=== PATIENT | male | born 1945 | race Caucasian/White ===

== ENCOUNTER 2019-03-24 07:02 | Inpatient (IN) ==
[2019-03-24] MEDS ORDERED: ASPIRIN PO ONE (07:15)
[2019-03-24] MEDS ORDERED: DUONEB (A & A) INH ONE (07:30)
[2019-03-24] MEDS ORDERED: SOLU-MEDROL IV ONE (07:30)
[2019-03-24 07:31] LABS: BASO# 0.03 X1000 (0.0-0.2); BASO% 0.2 % (0.0-0.8); EOS# 0.22 X1000 (0.0-0.7); EOS% 1.6 % (0.0-10.0); HEMOGLOBIN 14.9 g/dL (14.0-18.0); IMM GRAN# 0.03 X1000 (0.0-0.04); IMM GRAN% 0.2 % (0.0-0.5); LYMPH# 0.64 X1000 (1.2-3.4); LYMPH% 4.6 % (20.5-51.1); MCH 28.7 PG (27-31); MCHC 33.1 g/dL (33-37); MCV 86.7 FL (81-99); MONO# 0.75 X1000 (0.11-0.59); MONO% 5.4 % (1.7-9.3); MPV 9.4 FL (7.4-10.4); PLT 352 X1000 (130-400); RBC 5.19 XMIL (4.7-6.1); RDW 13.7 % (11.5-14.5); WBC 13.97 X1000 (4.8-10.8)
--- NOTE | 2019-03-24 07:36 | PROVIDER DOCUMENTATION ---
HPI-Chest Pain - General Chief Complaint: Chest Pain Stated Complaint: right chest pain Time Seen by Provider: 03/24/19 07:21 Source: patient Allergies/Adverse Reactions: Patient Allergies Allergy/AdvReac Type Severity Reaction Status Date / Time Sulfa (Sulfonamide AdvReac Unknown Verified 07/02/18 08:48 Antibiotics) Home Medications: Home Medication List Medication Instructions Recorded Confirmed Last Taken Type Celecoxib [Celebrex] 200 mg PO QPM 10/04/14 03/24/19 03/23/19 History Omeprazole 40 mg PO QAM 10/04/14 03/24/19 03/23/19 History SIMVAstatin [Zocor] 40 mg PO QHS 10/04/14 03/24/19 03/23/19 History Alprazolam [Xanax] 0.5 mg PO BID 03/24/19 03/24/19 03/23/19 History Escitalopram Oxalate [Lexapro] 10 mg PO DAILY 03/24/19 03/24/19 03/24/19 History - History of Present Illness-CP Location: reports: other (right chest) Quality of Pain: reports: sharp Severity in ED: mild (chest pain has resolved, but now with mild, crampy back pain) Onset/Duration: abrupt (at 5:00am awoke him from sleep) Timing: gone now Context/Activities at Onset: reports: sleep Modifying Factors: improves with: nothing Associated Symptoms: reports: shortness of breath (patient reports several weeks of cough and decreased ability to take a deep breath) Aspirin Treatment Today: 325 mg x 1 (at home) Prior Chest Pain/Cardiac Workup: reports: no prior chest pain, other (no recent cardiac work up) Similar Symptoms Previously?: No Recently Seen Here or By Another Healthcare Provider: No Review of Systems - Adult - REVIEW OF SYSTEMS - ADULT Constitutional: reports: no symptoms reported Eyes: reports: no symptoms reported Ears, Nose, Mouth & Throat: reports: no symptoms reported Cardiovascular: reports: see HPI Past History - Adult - PAST MEDICAL HISTORY-ADULT Review of Records: reports: Old Records Reviewed Cardiovascular: reports: HTN, hyperlipidemia Gastrointestinal: reports: GERD Psychiatric: reports: anxiety - PRIOR SURGERIES/PROCEDURES Surgical/Procedure History: reports: none - IMMUNIZATION STATUS Childhood Immunizations: See Nurse Assessment Flu Vaccine: See Nurse Assessment Physical Exam-General - PHYSICAL EXAM-ADULT Initial Vital Signs Reviewed: Yes - CONSTITUTIONAL General Appearance: appears well, mild distress - EYES Eyes: PERRL/EOMI, pink conjunctivae - HEAD, EARS, NOSE, MOUTH & THROAT HENMT: normocephalic/atraumatic, moist mucous membranes, normal ENT inspection - NECK Neck: non-tender, full range of motion, supple - RESPIRATORY Respiratory: chest non-tender, lungs clear, no accessory muscle use, respiratory distress (mild), decreased breath sounds - CARDIOVASCULAR Cardiovascular: normal peripheral pulses, regular rate, rhythm, no edema - GASTROINTESTINAL (ABDOMEN) Abdominal Exam: non tender, soft, no organomegaly - MUSCULOSKELETAL Back Exam: normal inspection, no CVA tenderness Extremity: normal range of motion, non-tender, no pedal edema - SKIN Integumentary: normal color, normal turgor, warm/dry - NEUROLOGIC 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 as 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, grossly normal, no motor/sensory deficits - PSYCHIATRIC Psych/Mental Status: normal mood/affect, normal thought content, normal thought process, oriented x 3 - HEART Score HEART Score: History: Slightly Suspicious HEART Score: ECG: Non-Specific Repolarization Disturbance/LBBB/PM HEART Score: Age: > or = 65 Years HEART Score: Risk Factors for Atherosclerotic Disease: 1 or 2 Risk Factors HEART Score: Troponin: < or = Normal Limit Total HEART Score:: 4 Progress - PLAN OF CARE/RESULTS Progress/Plan/Lab Results: Laboratory Results - last 24 hr 03/24/19 03/24/19 03/24/19 07:20 07:20 07:20 WBC 13.97 H RBC 5.19 Hgb 14.9 Hct 45.0 MCV 86.7 MCH 28.7 MCHC 33.1 RDW Std Deviation 13.7 Plt Count 352 MPV 9.4 Immature Gran % (Auto) 0.2 Neut % (Auto) 88.0 H Lymph % (Auto) 4.6 L Hill % (Auto) 5.4 Eos % (Auto) 1.6 Baso % (Auto) 0.2 Immature Gran # (Auto) 0.03 Neut # (Auto) 12.30 H Lymph # (Auto) 0.64 L Hill # (Auto) 0.75 H Eos # (Auto) 0.22 Baso # (Auto) 0.03 PT INR PTT (Actin FS) D-Dimer, Quantitative Sodium 139 Potassium 4.0 Chloride 102 Carbon Dioxide 26 Anion Gap 11 BUN 13 Creatinine 0.7 Estimated GFR/1.73 m2 > 60 BUN/Creatinine Ratio 19 Glucose 118 H Calculated Osmolality 279 Calcium 8.8 Total Bilirubin 0.71 AST 12 ALT 14 Alkaline Phosphatase 77 Creatine Kinase 30 Troponin T Cbs-E-Dzggxgugxjd Pept 33 Total Protein 7.8 Albumin 3.5 Globulin 4.3 Albumin/Globulin Ratio 0.8 Plasma Lactate 03/24/19 03/24/19 03/24/19 07:20 07:20 07:20 WBC RBC Hgb Hct MCV MCH MCHC RDW Std Deviation Plt Count MPV Immature Gran % (Auto) Neut % (Auto) Lymph % (Auto) Hill % (Auto) Eos % (Auto) Baso % (Auto) Immature Gran # (Auto) Neut # (Auto) Lymph # (Auto) Hill # (Auto) Eos # (Auto) Baso # (Auto) PT 13.9 INR 0.99 PTT (Actin FS) 36.5 D-Dimer, Quantitative 0.87 H Sodium Potassium Chloride Carbon Dioxide Anion Gap BUN Creatinine Estimated GFR/1.73 m2 BUN/Creatinine Ratio Glucose Calculated Osmolality Calcium Total Bilirubin AST ALT Alkaline Phosphatase Creatine Kinase Troponin T < 0.010 Zaf-W-Dmnwmpwktir Pept Total Protein Albumin Globulin Albumin/Globulin Ratio Plasma Lactate 03/24/19 10:10 WBC RBC Hgb Hct MCV MCH MCHC RDW Std Deviation Plt Count MPV Immature Gran % (Auto) Neut % (Auto) Lymph % (Auto) Hill % (Auto) Eos % (Auto) Baso % (Auto) Immature Gran # (Auto) Neut # (Auto) Lymph # (Auto) Hill # (Auto) Eos # (Auto) Baso # (Auto) PT INR PTT (Actin FS) D-Dimer, Quantitative Sodium Potassium Chloride Carbon Dioxide Anion Gap BUN Creatinine Estimated GFR/1.73 m2 BUN/Creatinine Ratio Glucose Calculated Osmolality Calcium Total Bilirubin AST ALT Alkaline Phosphatase Creatine Kinase Troponin T Cce-A-Vmnayjkuhpk Pept Total Protein Albumin Globulin Albumin/Globulin Ratio Plasma Lactate 1.2 Orders Category Date Time Status Admit [facility] Routine AdmDCTranf 03/24/19 10:[address] [facility] Routine AdmDCTranf 03/24/19 12:58 Active Activity - Up with Assistance ORDERED Care 03/24/19 12:58 Active Cardiac Monitoring DIRECTED Care 03/24/19 07:15 Completed Elevate Head of Bed DIRECTED Care 03/24/19 12:58 Active Encourage Fluids DIRECTED Care 03/24/19 12:58 Active Intake and Output-Strict Q 8-HR ASSESS Care 03/24/19 12:58 Active Nursing- Assist w/ IS as order ORDERED Care 03/24/19 12:58 Active Oxygen Therapy- ED Nursing DIRECTED Care 03/24/19 07:15 Active Saline Loc NOW Care 03/24/19 07:15 Completed Turn, Cough and Deep Breathe Q2HR Care 03/24/19 12:58 Active Vital Signs Order Q 8-HR ASSESS Care 03/24/19 12:58 Active Regular Diet Diet 03/24/19 12:59 Active CHEST-2 VIEWS [RAD] Stat Exams 03/24/19 07:15 Completed BLOOD CULTURE [BLDCUL] Stat Lab 03/24/19 07:30 Results CBC WITH ELECTRONIC DIFF [HEME] Stat Lab 03/24/19 07:20 Completed CK PROFILE [SP CHEM] Stat Lab 03/24/19 07:20 Completed COMPREHENSIVE METABOLIC PANEL [CHEM] Stat Lab 03/24/19 07:20 Completed D-DIMER [COAG] Stat Lab 03/24/19 07:20 Completed LACTATE, PLASMA [CHEM] Stat Lab 03/24/19 10:10 Completed PRO B-NATRIURETIC PEPTIDE Stat Lab 03/24/19 07:20 Completed PROTIME WITH INR [COAG] Stat Lab 03/24/19 07:20 Completed PTT [COAG] Stat Lab 03/24/19 07:20 Completed TROPONIN T Stat Lab 03/24/19 07:20 Completed Albuterol 2.5MG/Ipratrop 0.5MG [Duoneb (A & A)] Med 03/24/19 07:30 Discontinued 3 ml INH NOW ONE Aspirin Med 03/24/19 07:15 Discontinued 325 mg PO NOW ONE Azithromycin 500 mg/Ns [Zithromax 500 mg/Ns] Med 03/24/19 10:01 Discontinued 500 mg in 250 ml IV NOW CefTRIAXONE [Rocephin] 2 gm Med 03/24/19 10:01 Discontinued 0.9% Sodium Chloride Inj [Ns] 50 ml IV NOW Methylprednisolone Sod Succ [Solu-Medrol] Med 03/24/19 07:30 Discontinued 125 mg IV NOW ONE Aerosol Treatments Routine Oth 03/24/19 07:30 Completed Aerosol Treatments Stat Oth 03/24/19 07:30 Completed Incentive Spirometer Routine Oth 03/24/19 12:58 Completed Oxygen Device Routine Oth 03/24/19 12:58 Completed Pulse Oximetry Routine Oth 03/24/19 12:58 Completed EKG [EKG] Stat Ther 03/24/19 07:15 Draft Transfer/Admit Order [TRANSFER] Routine Transfer 03/24/19 10:16 Completed Result Diagrams: 03/24/19 07:20 03/24/19 07:20 - EKG 1 Time of EKG reading by physician:: 07:25 EKG Read and Signed by:: Adis Velasquez Rate: 83 Rhythm: SR [place]: left Departure - Departure Date of Disposition Decision: 03/24/19 Time of Disposition Decision: 10:14 DIAGNOSIS: Pneumonia Qualifiers: Pneumonia type: due to unspecified organism Laterality: right Lung location: unspecified part of lung Qualified Code(s): J18.9 - Pneumonia, unspecified organism Disposition: ADMITTED INPATIENT 09 Certified Medical Emergency: Emergent Condition: Serious - Critical Care Note This patient required my direct & personal management of CC.: No Attestation - Physician/ DENICE Attestation Patient care was provided by Advanced Practice Provider:: No The physician spent face to face time with patient:: Yes Advanced Practice Provider documentation review:: Supervising physician onsite and consulted in the evaluation and care of this patient. The physician did have a face to face encounter with the patient.
[2019-03-24 07:38] LABS: INR 0.99; PROTIME 13.9 Seconds (11.0-16.0)
[2019-03-24 07:39] LABS: PTT 36.5 Seconds (22.3-41.8)
[2019-03-24 07:55] LABS: AGAP 11; ALB/GLOB RATIO 0.8; ALBUMIN 3.5 g/dL (3.5-5.0); ALKALINE PHOSPHATASE 77 U/L (32-122); BUN 13 mg/dL (8-22); CALCIUM 8.8 mg/dL (8.8-10.2); CHLORIDE 102 mmol/L (98-107); CK PROFILE 30 U/L (24-204); COSMO 279; CREATININE 0.7 mg/dL (0.7-1.2); ESTIMATED GFR > 60; GLUCOSE 118 mg/dL (70-104); GOT 12 U/L (10-34); GPT 14 U/L (10-44); SODIUM 139 mmol/L (136-145); TCO2 26 mmol/L (25-35); TOTAL BILIRUBIN 0.71 mg/dL (0.20-1.00); TOTAL PROTEIN 7.8 g/dL (6.3-8.3)
--- NOTE | 2019-03-24 08:13 | EKG Report ---
Test Performed on : 03/24/2019 07:15:31 AM Test Reason : CHEST PAIN Blood Pressure : / mmHG Vent. Rate : 083 BPM Atrial Rate : 083 BPM P-R Int : 178 ms QRS Dur : 108 ms QT Int : 368 ms P-R-T Axes : 005 -31 014 degrees QTc Int : 432 ms Normal sinus rhythm. Left axis deviation Abnormal ECG When compared with ECG of 02-JUL-2018 09:07, No significant change was found Unconfirmed Result
--- NOTE | 2019-03-24 09:41 | Diag Imaging Result Doc PS360 ---
CHEST-2 VIEWS - 03/24/2019 INDICATION: chest pain COMPARISON: 07/08/2018 FINDINGS: There is bilateral lower lobe airspace opacification consistent with a combination of atelectasis, infiltrate, or pleural effusion. This is slightly larger on the right side than the left. Heart size and pulmonary vascularity is grossly normal. IMPRESSION: Bilateral lower lobe airspace opacification, nonspecific. Electronically signed by Brandin Rowell 03/24/2019 9:39 AM
[2019-03-24] MEDS ORDERED: ROCEPHIN 2 GM in NS 50 ML IV ONE (10:01)
[2019-03-24] MEDS ORDERED: ZITHROMAX 500 MG/NS 500 MG/250 ML IVPB IV ONE (10:01)
[2019-03-24] MEDS ORDERED: ZOFRAN IV PRN (12:58)
[2019-03-24] MEDS: NS 1,000 ML IV PRN (15:25)
--- NOTE | 2019-03-24 15:46 | Diag Imaging Result Doc PS360 ---
EXAM: CT ABDOMEN/PELVIS W/WO ALESHAAS 03/24/2019 HISTORY: RUQ pain, fevers TECHNIQUE: This exam was performed using automated exposure control, adjustment of mA or kV according to patient size, and/or use of iterative reconstruction technique. COMMENT: There are no previous studies available for comparison. There is atelectasis versus pneumonia in both lower lobes particularly the right lower lobe. There is also a pleural effusion on the right. There is marked granulomata in the spleen. The spleen is enlarged measuring over 14.3 cm. The liver is unremarkable in appearance. The gallbladder is not distended and there are no apparent stones. There is a small hiatal hernia. The adrenal glands and pancreas are unremarkable. The aorta is not distended. There is calcification in the aorta and iliac arteries. The mesenteric and renal arteries appear to be patent. There are number of cysts in the right kidney. There are stones in the upper mid right collecting system. There is no evidence of bowel obstruction. There is some stool throughout colon. There is no evidence of appendicitis. Pelvis: There is diverticulosis in the sigmoid colon without evidence of diverticulitis. The urinary bladder is not distended. There is stool in the rectum. There has been posterior fusion at L5-S1. There is no evidence of acute bony abnormality. IMPRESSION: Bronchopneumonia with right pleural effusion. Electronically signed by Javed Baig 03/24/2019 3:43 PM
--- NOTE | 2019-03-24 16:15 | Diag Imaging Result Doc PS360 ---
EXAM: CT ANGIOGRAM PULMONARY ARTERIES 03/24/2019 HISTORY: chest pain TECHNIQUE: This exam was performed using automated exposure control, adjustment of mA or kV according to patient size, and/or use of iterative reconstruction technique. COMMENT: Contrast opacification of the pulmonary arteries is somewhat suboptimal but there are no definite filling defects. There is a large right pleural effusion. There is opacity in both lower lobes, and the inferior lingula particularly in the right lower lobe. There is also some apparent atelectasis in the right middle lobe. The spleen is enlarged measuring over 14.3 cm. There are spondylotic changes in the thoracic spine. IMPRESSION: Bronchopneumonia and large right pleural effusion. Splenomegaly. No evidence of pulmonary emboli. Electronically signed by Javed Baig 03/24/2019 4:13 PM
[2019-03-24] MEDS: CELEBREX PO SCH (21:00)
[2019-03-24] MEDS: ZOCOR PO SCH (21:00)
[2019-03-24] MEDS: LOVENOX SUBQ SCH (21:00)
[2019-03-24] MEDS: COLACE PO SCH (21:00)
[2019-03-24] MEDS: XANAX PO SCH (21:01)
--- NOTE | 2019-03-24 21:08 | HISTORY AND PHYSICAL ---
INDICATION FOR ADMISSION: Right-sided chest pain with fevers and chills and refractory cough. HISTORY OF PRESENT ILLNESS: Mr. Ying is a pleasant, 73-year-old gentleman with a past medical history consistent with B12 deficiency, osteoarthritis of the knee, personal history of colon polyps, history of insomnia, history of hematuria, reflux, elevated PSA. History of diverticular disease. History of generalized anxiety disorder, iron deficiency, impaired fasting glucose, dyslipidemia and spondylosis of the lumbosacral spine. He presents to the emergency room via ambulance after being awakened this morning at about 5:00 with what he describes as a cramp in the right side of his chest. He rates it a 9/10 as if a fist was grabbing him. He has no previous history of right-sided chest pain or spasm. He reports some nonspecific posterior right flank pain with radiation to the anterior lower chest margin, worsening cough with wheezing over the past several days. He has been seen over the past 6 to 8 weeks in the Internal Medicine Clinic for cough in the presence of normal chest x-rays. He had elevated white blood cell count, and elevated sedimentation rate with cyclical fevers, raising concern for B symptoms. A CT scan of the abdomen and pelvis and chest as well as Hematology/ Oncology consultation was forthcoming. On arrival to the emergency room, a x-ray is obtained demonstrating the presence of a consolidation in the right hemithorax secondarily complicated by pleural effusion. He is admitted to the internal medicine service for pneumonia complicated by a parapneumonic effusion. This certainly is the working diagnosis. I have cautioned the patient that there may be a more sinister cause of this abnormality and a pleural effusion. Time and further diagnostic workup and treatment will tell. MEDICATIONS ON ADMISSION: Including omeprazole 40 mg once daily. Iron supplement 325 mg b.i.d., vitamin C supplement to be taken with the iron as directed. Alprazolam 0.5 mg p.o. b.i.d., Lexapro 10 mg once daily. Celebrex 200 mg once daily, and simvastatin 40 mg once daily. ALLERGIES: To alcohol, Cymbalta, Celexa, Bactrim and sulfa based medications. PAST MEDICAL HISTORY: As per HPI. FAMILY HISTORY: Mother in 2017 following complications of a broken hip. The father at 67 secondary to congestive heart failure. Brother 70 years old with high blood pressure and cholesterol. Brother 68 with diabetes, sleep apnea and joint pain. SOCIAL HISTORY: Patient is with no children. Having been for 39 years. in 1979. He is retired from [employer] in 1998 after 25 years. 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 He has an 80 pack year history, quitting in 1983. He admits to a glass of red wine daily. He is well traveled. Has a limited history 1965 to 1967. PAST SURGICAL HISTORY: Back surgery in February 2018. Knee surgery in 2013 and in 2017. Vasectomy in 1982. Nephrolithiasis with a basket retrieval in 2003. TURP in 2008. Craniotomy at [facility] in 2014. Patient's last annual wellness visit 04/18/2018. 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 REVIEW OF SYSTEMS: Unremarkable except that noted within the HPI above, patient having recently been seen in the Internal Medicine Clinic as recently as March 09. He presented at that time a week after being treated for presumed insect bite, but he continued to have cyclical fevers in excess of 3 weeks with generalized fatigue. He reported headaches associated with the cyclical fevers and some worsening cough with shortness of breath and decreased appetite. At that time, a chest x-ray was obtained in the Internal Medicine clinic, failing to demonstrate any evidence of consolidation, mass or pneumonia. It was recommended that he try an inhaler and this was provided in the form of sample since his pulmonary exam was entirely normal. We agreed to interval follow up in 5 to 7 days. He presented back with no significant improvement, additional labs demonstrating the presence of elevated sedimentation rate between 100 and 125 and nonspecifically elevated white blood cell count without focal source of infection. At that point, it was felt that hematology/oncology evaluation would be indicated secondary to working diagnosis, suspect for lymphoma. A CT scan of the chest, abdomen and pelvis were ordered at that time. However, he was not able to make that appointment or those studies as he presented to the emergency room as per HPI above. He is seen in the emergency room and evaluated for admission. He is provided a single therapeutic injection of Rocephin and azithromycin and blood cultures are pending at the time of admission. PHYSICAL EXAMINATION: VITALS: At the time of rounding, blood pressure 114/74, respirations at 20, pulse at 91, temperature at 98.1. T-max at 100.1. Saturating 92% on room air. HEENT: Normocephalic, atraumatic. Pupils are equal and reactive to light and accommodation. NECK: Soft and supple without lymphadenopathy or bruits. CARDIOVASCULAR: Unremarkable. PULMONARY: Lungs are clear with decreased respiratory sounds in the right posterior middle and right lower lobes. ABDOMEN: Soft. Nontender. EXTREMITIES: Benign, without clubbing, cyanosis, or edema. NEUROLOGICAL: Cranial nerves 2-12 are grossly intact. Patient is alert oriented x3 without any cognitive deficiencies. LABORATORY: On admission, including a white blood cell count at 13.97. Hemoglobin and hematocrit of 14.9 and 45.0 with platelets at 352. He does have a left shift. PT/INR unremarkable. He does have an elevated D-dimer at 0.87, sodium 139, potassium 4.0, chloride 102, bicarb at 26, BUN and creatinine are unremarkable at 13 and 0.7. AST and ALT are normal. First set of cardiac enzymes are negative. Plasma lactate is negative at 1.2. Based on acute onset of left-sided pleuritic chest pain 9/10 unlike any prior, and shortness of breath with tachycardia and fever, initial chest x-ray in the ER is performed demonstrating presence of bilateral early infiltrates. A CT angiogram is performed demonstrating no evidence of pulmonary embolism. There is a large right-sided pleural effusion and apparent atelectasis in the right middle lobe. The spleen is noted to be mildly enlarged at 14.3 cm. IMPRESSION: A 73-year-old, with right-sided lower lobe pneumonia complicated by parapneumonic effusion. The patient is admitted for community-acquired pneumonia and provided initial dosing of the therapeutic antibiotic in the emergency room and will be continued on the same upon transfer to the floor. We did discuss non-infectious and more ominous causes of consolidation and pleural effusions. We will follow clinically for resolution of fever and general improvement in the appearance of the chest x-ray over the next 48 to 72 hours. No new and/or additional recommendations at this time. The patient understands the course of treatment and plan. cc: Emiliano Rachel DO
[2019-03-25] MEDS: NS 1,000 ML IV PRN (03:07)
--- NOTE | 2019-03-25 09:01 | Diag Imaging Result Doc PS360 ---
EXAM: CHEST-2 VIEWS HISTORY: RLL pneumonia with effusion TECHNIQUE: Chest two views COMPARISON: 03/24/2019 FINDINGS: There is a small to moderate-sized right pleural effusion. There is basilar atelectasis and underlying infiltrates. No pulmonary edema. Heart is borderline mildly prominent. Minimal atelectasis in the left base. IMPRESSION: Worsening right pleural effusion with basilar atelectasis and pneumonia. Electronically signed by Denis Lira 03/25/2019 8:59 AM
[2019-03-25] MEDS: ZITHROMAX PO SCH (09:56)
[2019-03-25] MEDS: PRILOSEC PO SCH (09:57)
[2019-03-25] MEDS: XANAX PO SCH ×2 (09:57→20:34)
[2019-03-25] MEDS: ROCEPHIN 1 GM in NS 50 ML IV SCH (09:57)
[2019-03-25] MEDS: COLACE PO SCH ×2 (09:57→20:34)
[2019-03-25] MEDS ORDERED: TYLENOL PR PRN (17:02)
[2019-03-25] MEDS ORDERED: TYLENOL PO ONE (17:02)
--- NOTE | 2019-03-25 19:58 | PROGRESS NOTE ---
DATE: 03/25/2019 SUBJECTIVE: Indication for prolonged hospitalization, ongoing medical management for presumed community-acquired pneumonia complicated by parapneumonic effusion. Today the chest x-ray would demonstrate interval worsening of the pleural effusion. The patient also continues to run low- grade fever despite antibiotic coverage. Blood cultures are negative to date. I think, based on the newness of the pleural effusion and worsening, that a therapeutic/diagnostic thoracentesis would be indicated. 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 We will be putting in an order for this to happen over the course of the next 12 to 24 hours. He reports that he is more short of wind and having more difficulty lying flat and on his right side. OBJECTIVE: Vital signs at the time of rounding: Blood pressure 140/68, pulse at 97, respiration rate at 20, temperature at 99.9 degrees. Intake and output: Cumulatively [id number] in and none recorded as out. He continues on daily ceftriaxone and daily azithromycin. Again, blood cultures are pending. On exam the patient is sitting up in bed with some mild respiratory difficulty. There is dullness to percussion about fdc up on the right posterior side and decreased/absent respiratory sounds in the posterior right lower hemithorax.Cardiovascular: Regular rate and rhythm without murmurs, gallops or rubs. Abdomen is soft. Extremities are benign, without clubbing, cyanosis or edema. Cranial nerves 2 through 12 are grossly intact. The patient is alert oriented x3 without any cognitive deficiencies. LABORATORY DATA: Laboratory is ordered for tomorrow morning including a CMP and a CBC for interval comparison and review. Again, blood cultures are still pending at the time of admission. DIAGNOSTIC DATA: Chest x-ray is noted to be interval worse with pleural effusion on the right. IMPRESSION AND PLAN: A 73-year-old gentleman with new-onset pleural effusion. This within the context of presumed community-acquired pneumonia. Based on new-onset pleural effusion and interval worsening over the past 12 to 24 hours, I do think that a therapeutic/diagnostic thoracentesis is indicated. I have consulted with Pulmonary Critical Care for assistance in this regard. I have also cautioned the patient that the fluid will be tested for other noninfectious causes such as malignancy. In the event that his fever was to spike overnight, we would end up broadening antibiotic coverage to include anaerobes as well as staphylococcus. He is complaining of cough. We will be providing him some narcotic-based antitussive agent. The patient and the understand the course of treatment and plan. No further issues at this time. Note is dictated on the evening of rounds. cc: Emiliano Rachel DO
[2019-03-25] MEDS: CELEBREX PO SCH (20:34)
[2019-03-25] MEDS: ZOCOR PO SCH (20:34)
[2019-03-25] MEDS: TUSSIONEX LIQUID PO SCH (20:34)
[2019-03-25] MEDS: DOXYCYCLINE PO SCH (22:15)
--- NOTE | 2019-03-26 01:20 | PULMONOLOGY CONSULTATION ---
DATE: 03/25/2019 HISTORY OF PRESENT ILLNESS: Mr. Ying is a 73-year-old white male with an 80 pack-year history for tobacco (patient unrelated to this practitioner). He reports he was in his usual state of health until the end of January. The patient had company visit his house and after they left, he developed a gastrointestinal illness associated with nausea, vomiting, and fevers. He recovered from this illness, but approximately 1 week later he developed a minor cough with subsequent onset of periodic fevers. He would take Tylenol and this would resolve. Sometime in February, he also noted a small tick on his inner thigh. This did not leave a lesion and did not appear to be imbedded. He did develop a target lesion on his right forearm, which he describes as the round [place] with a central clearing. He was evaluated by Dr. Rachel and received 10 days of doxycycline on 02/27/2019. He reports his fever resolved on the last day of antibiotics, but subsequently returned. He has also developed a progressive increasing cough, shortness of breath, and some right-sided pleuritic pain. He has had minimal sputum production. He has had no recent dental work. He denies a change in smell of his breath. He has had no recent travel. He has fairly severe gastroesophageal reflux and if he does not eat at the appropriate time he will have to get up out of bed. He frequently will eat supper around 5 p.m., but will eat sandwiches as late as 7 p.m. and go to bed at 10. He was admitted to the emergency room after presenting with mid chest pain and back pain which woke him from sleep. PAST MEDICAL HISTORY: 1. Obstructive sleep apnea, on CPAP. 2. Significant gastroesophageal reflux, as outlined above. 3. Dyslipidemia. 4. Hypertension. 5. History of history of nephrolithiasis. 6. BPH, status post TURP. 7. Osteoarthritis status post bilateral total knee arthroplasty. 8. Back surgery. 9. Craniotomy per Dr. Rachel's notes. 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 He drinks approximately 5 alcoholic beverages per week. He has an 80 pack-year history for tobacco. FAMILY HISTORY: Positive for coronary artery disease, hypertension, dyslipidemia, and diabetes mellitus. REVIEW OF SYSTEMS: Twelve system review of systems is negative except as outlined in the HPI. PHYSICAL EXAMINATION: General: Reveals a healthy-appearing white male, resting comfortably and in no distress. Vital signs: Maximum temperature during this hospitalization, 100.1 degrees. BP 140/68, heart rate 97, respiratory rate 20, oxygen saturation 97% on room air. HEENT: Pupils are equal and reactive. Oropharynx is clear. Neck: Supple. Chest: Reveals pleural rub at the right base with decreased breath sounds. Cardiac: S1, S2. Abdomen: Obese and soft. Extremities: Reveal trace edema. LABORATORIES: CT scan of the thorax reveals no evidence of pulmonary emboli. There is a moderate to large right-sided pleural effusion with consolidation in the right middle and right lower lobe. He has mild splenomegaly. White blood count 13.97, hemoglobin 14.9, platelet count 352,000. IMPRESSION: A 73-year-old with extensive tobacco history, who has had an ongoing infectious process for the last 6 weeks. The patient does report a tick bite with a target lesion, but this was midway in his febrile illness. The patient's initial complaint was nausea, vomiting, diarrhea, followed by a fever 1 week later. The unifying hypothesis would be a minor aspiration event which led to an indolent lung abscess, which has subsequently developed a parapneumonic effusion with possible empyema. RECOMMENDATIONS: 1. Continue broad-spectrum antibiotics. Consider adding anaerobic coverage. 2. Thoracentesis with appropriate studies outlined in the order section. 3. Perform Lyme titers, although this is felt to be unlikely. 4. Encourage reflux precautions at discharge. The patient should not eat for several hours before going to bed. 5. Additional recommendations pending hospital course. cc: MD Emiliano Muse,
[2019-03-26] MEDS: LOVENOX SUBQ SCH (01:59)
[2019-03-26 05:33] LABS: BASO# 0.02 X1000 (0.0-0.2); BASO% 0.2 % (0.0-0.8); EOS# 0.11 X1000 (0.0-0.7); EOS% 1.1 % (0.0-10.0); HEMATOCRIT 38.9 % (42.0-52.0); HEMOGLOBIN 12.9 g/dL (14.0-18.0); LYMPH# 0.54 X1000 (1.2-3.4); LYMPH% 5.2 % (20.5-51.1); MCH 28.7 PG (27-31); MCHC 33.2 g/dL (33-37); MCV 86.6 FL (81-99); MONO# 1.09 X1000 (0.11-0.59); MONO% 10.5 % (1.7-9.3); MPV 9.2 FL (7.4-10.4); NEUT# 8.62 X1000 (1.4-6.5); PLT 298 X1000 (130-400); RBC 4.49 XMIL (4.7-6.1); RDW 13.7 % (11.5-14.5); WBC 10.38 X1000 (4.8-10.8)
[2019-03-26 05:58] LABS: AGAP 9; ALB/GLOB RATIO 0.8; ALBUMIN 2.8 g/dL (3.5-5.0); ALKALINE PHOSPHATASE 84 U/L (32-122); BUN 16 mg/dL (8-22); CHLORIDE 102 mmol/L (98-107); COSMO 277; CREATININE 0.6 mg/dL (0.7-1.2); ESTIMATED GFR > 60; GLUCOSE 105 mg/dL (70-104); GOT 41 U/L (10-34); GPT 50 U/L (10-44); POTASSIUM 4.1 mmol/L (3.5-5.1); SODIUM 138 mmol/L (136-145); TCO2 27 mmol/L (25-35); TOTAL BILIRUBIN 0.65 mg/dL (0.20-1.00); TOTAL PROTEIN 6.5 g/dL (6.3-8.3)
[2019-03-26] MEDS: XANAX PO SCH ×3 (07:50→21:07)
[2019-03-26] MEDS: DOXYCYCLINE PO SCH ×3 (07:53→20:25)
[2019-03-26] MEDS: ZITHROMAX PO SCH ×2 (07:53→08:12)
[2019-03-26] MEDS: COLACE PO SCH ×3 (07:53→20:25)
[2019-03-26] MEDS: TUSSIONEX LIQUID PO SCH ×3 (07:54→20:26)
[2019-03-26] MEDS: PRILOSEC PO SCH ×2 (07:54→08:13)
--- NOTE | 2019-03-26 09:06 | Diag Imaging Result Doc PS360 ---
CHEST-2 VIEWS - 03/26/2019 INDICATION: RLL pneumonia with effusion COMPARISON: 03/25/2019 FINDINGS: There has been increase in size of the right basilar opacification which is now moderate to large. However at least some of this area is probably lung as the area did not appear as a uniform effusion on the ultrasound. The majority is probably pleural effusion. IMPRESSION: Increased size of the right basilar opacification consistent with pleural effusion and probably consolidated lung. Electronically signed by Brandin Rowell 03/26/2019 9:04 AM
--- NOTE | 2019-03-26 09:11 | Diag Imaging Result Doc PS360 ---
US THORACENTESIS W/IMAGE GUIDE - 03/26/2019 INDICATION: fever, Right sided pleural effusion TECHNIQUE: The risks and benefits of the procedure were discussed with the patient. All questions were answered. Written and verbal informed consent was obtained. Overlying skin was prepped and draped in sterile fashion. Anesthesia was achieved with injection of 6 cc of 1% lidocaine. COMPARISON: Previous chest x-ray FINDINGS: There were two pockets of effusion at the right midlung and lung base. The midlung pocket is actually the larger one measuring about 200 cc. At the right base this measured about 100 cc. Probably a lot of the opacification is consolidated lung. 60 cc was removed without difficulty using a fine needle. The fluid is clear yellow. The patient reported no symptoms from the procedure. IMPRESSION: Successful and uncomplicated ultrasound-guided thoracentesis of a small volume of the right pleural effusion. There is a small to moderate effusion and significant consolidated lung. Electronically signed by Brandin Rowell 03/26/2019 9:09 AM
[2019-03-26 09:52] LABS: AMYLASE BODY FLUID 33 U/L; GLUCOSE BODY FLUID 47 mg/dL; TOTAL PROT BODY FLUID 4.9 g/dL
[2019-03-26 09:59] LABS: LDH BODY FLUID 1213 U/L
[2019-03-26] MEDS: ROCEPHIN 1 GM in NS 50 ML IV SCH (10:03)
[2019-03-26 10:10] LABS: BODY FLUID SOURCE PLEURAL FLUID; SPECIMEN PLEURAL FLUID
[2019-03-26] MEDS: TYLENOL PO PRN (11:10)
[2019-03-26] MEDS: LEXAPRO PO SCH (12:34)
[2019-03-26] MEDS: NS 1,000 ML IV PRN (18:44)
[2019-03-26] MEDS: CELEBREX PO SCH (20:24)
--- NOTE | 2019-03-27 08:16 | PULMONOLOGY PROGRESS NOTE ---
DATE: 03/26/2019 SUBJECTIVE: The patient is awake, alert, and conversant. He has some cough which he reports is nonproductive. OBJECTIVE: Vital Signs: Maximum temperature in the last 24 hours is 99.9 degrees, blood pressure 128/64, heart rate 92, respiratory rate 18, oxygen saturation 97% on 2 L per nasal cannula. HEENT: Pupils are equal and reactive. Oropharynx appears clear. Neck: Supple. Chest: Reveals decreased breath sounds right base without definite E to A changes. Cardiac: S1, S2. Abdomen is soft. Extremities: Without edema. LABORATORY AND DIAGNOSTIC DATA: Thoracentesis was attempted by Radiology. Two pockets of fluid were identified and a small to moderate effusion was seen but significant amount was felt to be related to consolidated lung. 60 mL of clear yellow fluid was aspirated. Pleural fluid results: pH 8.0, white blood count 1.0, glucose 47, total protein 4.9, LDH 1213, amylase 33. Gram stain revealed 1+ white blood cells but no bacteria. Culture pending. White blood count now normal at 10.38, platelet count 298,000. Immunoglobulin levels are normal. IMPRESSION: A 73-year-old with: 1. Cyclic fevers. 2. Right lower lobe pneumonia. 3. Hypoxemic respiratory failure. 4. Parapneumonic effusion. 5. Leukocytosis with resolution on antibiotics. 6. Gastroesophageal reflux disease. RECOMMENDATIONS: 1. Continue broad-spectrum antibiotics. 2. Follow cultures from thoracentesis. 3. Continue bronchial hygiene. 4. Continue gastric acid suppression. 5. Would like to see radiographic improvement before discharge given the progression and severity of the right basilar consolidation. cc: MD Emiliano Muse DO
[2019-03-27] MEDS: TYLENOL PO PRN ×2 (08:43→19:26)
[2019-03-27] MEDS: TUSSIONEX LIQUID PO SCH ×2 (08:43→20:16)
[2019-03-27] MEDS: DOXYCYCLINE PO SCH (08:44)
[2019-03-27] MEDS: LEXAPRO PO SCH (08:44)
[2019-03-27] MEDS: COLACE PO SCH ×2 (08:44→20:16)
[2019-03-27] MEDS: PRILOSEC PO SCH (08:44)
[2019-03-27] MEDS: XANAX PO SCH ×2 (08:45→20:16)
--- NOTE | 2019-03-27 12:27 | Diag Imaging Result Doc PS360 ---
EXAM: CHEST-2 VIEWS 03/27/2019 HISTORY: demonstrate change/betterment in RLL TECHNIQUE: PA and lateral chest COMMENT: There is a large possibly loculated right pleural fluid collection. This has increased apparently in volume since 03/26/2019. The inspiration is actually better than on the previous study. There is apparent atelectasis in the left base. The heart size appears to be within normal limits. IMPRESSION: Worsening right pleural effusion. Electronically signed by Javed Baig 03/27/2019 12:24 PM
[2019-03-27 14:43] LABS: LYME DISEASE SCREEN SEE COMMENTS
[2019-03-27] MEDS: CULTURELLE PO SCH ×2 (15:55→20:17)
[2019-03-27] MEDS: LEVAQUIN PO SCH (16:23)
[2019-03-27] MEDS: CLEOCIN PO SCH ×3 (16:23→22:46)
[2019-03-27] MEDS: CELEBREX PO SCH (20:16)
[2019-03-28] MEDS: CLEOCIN PO SCH ×4 (02:47→20:02)
[2019-03-28] MEDS: TYLENOL PO PRN ×3 (02:47→18:26)
--- NOTE | 2019-03-28 07:03 | Diag Imaging Result Doc PS360 ---
EXAM: CHEST-1 VIEW HISTORY: SOB TECHNIQUE: Chest single view COMPARISON: 03/27/2019 FINDINGS: Likely loculated large right pleural effusion with atelectasis and infiltrates. This is similar to the prior exam. The left lung remains well expanded and clear. Mild pulmonary edema. IMPRESSION: Stable chest. Electronically signed by Denis Lira 03/28/2019 7:01 AM
[2019-03-28] MEDS ORDERED: ROBAXIN PO ONE ×2 (08:21→08:45)
[2019-03-28 09:35] LABS: BASO# 0.02 X1000 (0.0-0.2); BASO% 0.2 % (0.0-0.8); HEMOGLOBIN 13.2 g/dL (14.0-18.0); LYMPH% 4.9 % (20.5-51.1); MCH 28.4 PG (27-31); MONO# 0.83 X1000 (0.11-0.59); MONO% 8.1 % (1.7-9.3); MPV 8.9 FL (7.4-10.4); NEUT# 8.69 X1000 (1.4-6.5); NEUT% 84.8 % (42.2-75.2); PLT 304 X1000 (130-400); RBC 4.65 XMIL (4.7-6.1); RDW 13.6 % (11.5-14.5); WBC 10.24 X1000 (4.8-10.8)
[2019-03-28] MEDS: PRILOSEC PO SCH (09:55)
[2019-03-28] MEDS: CULTURELLE PO SCH ×2 (09:55→20:01)
[2019-03-28] MEDS: COLACE PO SCH ×2 (09:55→20:02)
[2019-03-28] MEDS: LEVAQUIN PO SCH (09:55)
[2019-03-28] MEDS: TUSSIONEX LIQUID PO SCH ×2 (09:55→20:02)
[2019-03-28] MEDS: LEXAPRO PO SCH (09:55)
[2019-03-28] MEDS: XANAX PO SCH ×2 (10:02→20:01)
[2019-03-28 10:04] LABS: AGAP 9; ALB/GLOB RATIO 0.8; ALBUMIN 2.9 g/dL (3.5-5.0); ALKALINE PHOSPHATASE 141 U/L (32-122); BUN 9 mg/dL (8-22); CALCIUM 8.9 mg/dL (8.8-10.2); CHLORIDE 101 mmol/L (98-107); COSMO 275; CREATININE 0.6 mg/dL (0.7-1.2); ESTIMATED GFR > 60; GLUCOSE 116 mg/dL (70-104); GOT 22 U/L (10-34); GPT 68 U/L (10-44); POTASSIUM 3.7 mmol/L (3.5-5.1); SODIUM 138 mmol/L (136-145); TCO2 28 mmol/L (25-35); TOTAL BILIRUBIN 1.04 mg/dL (0.20-1.00); TOTAL PROTEIN 6.4 g/dL (6.3-8.3)
--- NOTE | 2019-03-28 13:25 | Diag Imaging Result Doc PS360 ---
EXAM: CT THORAX W/WO CONTRAST HISTORY: hypoxia, fever, right posterior chets pain TECHNIQUE: Emergent CT chest with and without contrast COMPARISON: 03/24/2019 FINDINGS: Large loculated and multiseptated right pleural effusion. There is prominent atelectasis to the right middle and lower lobes. There may be underlying infiltrates as well. No cardiomegaly. No left pleural effusion. There calcified left hilar lymph nodes with scattered granuloma. IMPRESSION: Interval increase in the size of the loculated right pleural fluid collections since the prior CT. Similar appearance to the postthoracentesis chest films from 03/26/2019. This exam was performed using automated exposure control, adjustment of mA or kV according to patient size, and/or use of iterative reconstruction technique. Electronically signed by Denis Lira 03/28/2019 1:23 PM
--- NOTE | 2019-03-28 14:03 | PROGRESS NOTE ---
DATE: 03/28/2019 INDICATION FOR PROLONGED HOSPITALIZATION: Right-sided consolidation with pleural effusion, intervally worsening, and persistent fever. The patient was seen yesterday without documentation within the record. He was also seen by pulmonology note reviewed. Making recommendations for continuing antibiotic coverage. Performing a Lyme titer and preference to see radiographic improvement before discharge given the progression and severity of the right basilar consolidation. The presence of fever yesterday is somewhat unsettling. PHYSICAL EXAMINATION: Temperature this morning 98.8, pulse 77, respirations at 16, blood pressure at 104/66. This would be somewhat of a worrisome finding. This would be his lowest blood pressure to date. Pulse oximetry demonstrating interval worsening down into less than 95 making him hypoxic on room air. I's O's cumulative 7535 in and 1625 out for +5.9 L. Last laboratory is noted to be 03/26/2019. HEENT: Unremarkable. Cardiovascular: Regular rate and rhythm. Lungs: With decreased breath sounds on the right. Abdomen: Soft. Extremities: Benign. Neurological: Cranial nerves 2-12 are grossly intact. Patient is alert and oriented x3 without any cognitive deficiencies. Intentional tremor is noted on exam. IMPRESSION: 73-year-old, with large pleural effusion secondary to consolidation, currently on Levaquin and clindamycin in an effort to provide some coverage for anaerobes. No positive cultures or abnormal laboratory findings to date. IgG, IgM, and IgA are all noted to be unremarkable. Lyme screen is negative. Pleural fluid for AFB and fungal are noted to be negative. He does describe some right upper posterior shoulder pain today. It is difficult to determine whether this is related to musculoskeletal tension or related to a primary process contained within the right hemithorax. We will be obtaining some lab this morning, as well as providing him some muscle relaxants p.r.n. and repeating the CAT scan. The rationale for the CAT scan is hypotension, hypoxia, and persistent fever on antibiotics. No new and/or additional recommendations at this time. We will continue to follow clinically in this regard. The patient understands the course of treatment and plan. cc: Emiliano Rachel, DO [facility]
[2019-03-28] MEDS: CELEBREX PO SCH (20:01)
[2019-03-28] MEDS: NORCO-7.5 PO PRN (20:02)
[2019-03-29] MEDS: NORCO-7.5 PO PRN ×3 (02:47→19:46)
[2019-03-29] MEDS: CLEOCIN PO SCH ×4 (02:48→19:37)
[2019-03-29] MEDS: LEXAPRO PO SCH (09:32)
[2019-03-29] MEDS: LEVAQUIN PO SCH (09:32)
[2019-03-29] MEDS: XANAX PO SCH ×3 (09:32→22:46)
[2019-03-29] MEDS: COLACE PO SCH ×3 (09:32→22:46)
[2019-03-29] MEDS: CULTURELLE PO SCH ×3 (09:33→22:46)
[2019-03-29] MEDS: PRILOSEC PO SCH (09:33)
[2019-03-29] MEDS: TUSSIONEX LIQUID PO SCH ×3 (09:33→22:46)
--- NOTE | 2019-03-29 09:43 | PROGRESS NOTE ---
DATE: 03/29/2019 INDICATION FOR PROLONGED HOSPITALIZATION: Persistent right-sided pleural effusion, now with components consistent with pleurisy, having started on pain medication with cough and inspiratory effort yesterday. He is intervally better. Over the past 24 hours, some additional laboratory has been obtained, primarily off of pleural fluid at the request of the cloth printer. There has been no significant findings. A CT scan of the chest for hypoxia, hypotension and fever was obtained, showing interval increase in the size of loculated pleural effusion when compared to previous CT dated 03/24/2019. The left hemithorax is unremarkable at this time without effusion or consolidation. He continues on Levaquin and clindamycin p.o. and has remained afebrile for the past 24 hours. PHYSICAL EXAMINATION: Vital signs: Blood pressure 156/62, pulse rate at 93, respirations 18, temperature 98.8 degrees, T-max at 99.7 degrees, saturating 100% on nasal cannula. Cumulative intake and output for this hospitalization 8865 in and 1875 for +6.99 L. HEENT: Unremarkable. Cardiovascular: Regular rate and rhythm without murmurs, gallops, or rubs. Lungs: Decreased breath sounds/absent breath sounds in the mid to right lower posterior hemithorax. There is dullness to percussion. No evidence of wheezing or rhonchi. Abdomen: Soft with nonspecific tenderness in the epigastric and right upper quadrant without evidence of rebound or guarding. Extremities: Benign without clubbing, cyanosis, or edema. Neurological: Cranial nerves 2-12 are grossly intact. Patient is alert and oriented x3 without any cognitive deficiencies. LABORATORY DATA: Obtained yesterday after rounds including a CBC and a CMP. White blood cell count 10.24, hemoglobin and hematocrit at 13.3 and 40.0 with platelets at 304,000. Sodium 138, potassium at 3.7, chloride 101, bicarb at 28, BUN and creatinine at 9 and 0.6. AST and ALT are slightly improved from 41 to 22 and from 50 to 68, alkaline phosphatase elevated at 141, albumin decreased at 2.9. Connective tissue screening, her NORY and anti CCP antibodies are noted to be negative. IMPRESSION: A 73-year-old gentleman with a right-sided infiltrate, non resolving after a course of 4+ days of antibiotics further complicated by pleural effusion and probable early pleurisy. Status post thoracentesis with minimal amount of fluid obtained following admission. Based on failure to resolve and worsening appearance of CT scan, I think that direct visualization and perhaps bronchoscopy may be indicated. Will defer to Pulmonology at this point. Nonspecific epigastric and right upper quadrant pain raising concern for liver-associated issues and/or gallbladder pathology. He still has his gallbladder. There is also a concern based on elevated liver enzymes or at least trending upward enzymes. CT scan of the abdomen and pelvis failing to demonstrate any evidence of gallbladder inflammation, cholelithiasis or other acute problems in the right upper quadrant. A HIDA scan may be appropriate to rule out the presence of any biliary dyskinesia. DISPOSITION: We will continue to follow clinically. I do think that Pulmonology opinion with regards to the need for bronchoscopy and bronchoalveolar lavage may be appropriate when cloth printer returns on Saturday. In the interim, we will continue with antibiotic coverage and continue to follow clinically. Patient and understand the course of treatment and plan. No further issues at this time. Note is dictated on the morning of rounds. cc: Emiliano Rachel DO
[2019-03-29] MEDS: CELEBREX PO SCH ×2 (19:37→22:45)
[2019-03-30] MEDS: NORCO-7.5 PO PRN ×3 (01:07→17:34)
[2019-03-30] MEDS: CLEOCIN PO SCH ×4 (01:07→20:40)
[2019-03-30] MEDS: CULTURELLE PO SCH ×2 (09:04→20:40)
[2019-03-30] MEDS: COLACE PO SCH ×2 (09:05→20:40)
[2019-03-30] MEDS: LEVAQUIN PO SCH (09:05)
[2019-03-30] MEDS: TUSSIONEX LIQUID PO SCH ×2 (09:05→20:39)
[2019-03-30] MEDS: LEXAPRO PO SCH (09:05)
[2019-03-30] MEDS: XANAX PO SCH ×2 (09:05→20:40)
[2019-03-30] MEDS: PRILOSEC PO SCH (09:05)
--- NOTE | 2019-03-30 11:24 | Diag Imaging Result Doc PS360 ---
EXAM: CHEST-2 VIEWS HISTORY: pleural effusion and right sided consolidation TECHNIQUE: Chest two views COMPARISON: 03/28/2019 FINDINGS: Right pleural effusion with infiltrates and atelectasis. The right lung apex is actually slightly better aerated on the current study. The left lung remains well expanded and clear. No left pleural effusion. IMPRESSION: Slight interval improvement. Electronically signed by Denis Lira 03/30/2019 11:21 AM
[2019-03-30] MEDS: CELEBREX PO SCH (20:40)
[2019-03-31] MEDS: CLEOCIN PO SCH ×4 (01:10→22:15)
[2019-03-31 06:09] LABS: BASO# 0.02 X1000 (0.0-0.2); BASO% 0.2 % (0.0-0.8); EOS# 0.33 X1000 (0.0-0.7); EOS% 2.7 % (0.0-10.0); HEMOGLOBIN 12.9 g/dL (14.0-18.0); IMM GRAN# 0.07 X1000 (0.0-0.04); IMM GRAN% 0.6 % (0.0-0.5); LYMPH# 0.68 X1000 (1.2-3.4); LYMPH% 5.5 % (20.5-51.1); MCH 28.7 PG (27-31); MCHC 33.1 g/dL (33-37); MCV 86.7 FL (81-99); MONO# 1.08 X1000 (0.11-0.59); MONO% 8.8 % (1.7-9.3); MPV 9.2 FL (7.4-10.4); NEUT# 10.12 X1000 (1.4-6.5); NEUT% 82.2 % (42.2-75.2); PLT 286 X1000 (130-400)
[2019-03-31 06:51] LABS: AGAP 9; BUN 9 mg/dL (8-22); CALCIUM 8.4 mg/dL (8.8-10.2); CHLORIDE 96 mmol/L (98-107); COSMO 268; CREATININE 0.6 mg/dL (0.7-1.2); ESTIMATED GFR > 60; GLUCOSE 110 mg/dL (70-104); POTASSIUM 4.1 mmol/L (3.5-5.1); SODIUM 134 mmol/L (136-145); TCO2 29 mmol/L (25-35)
--- NOTE | 2019-03-31 07:12 | Diag Imaging Result Doc PS360 ---
EXAM: CHEST-1 VIEW 03/31/2019 HISTORY: SOB TECHNIQUE: AP portable at 0557 COMMENT: The right pleural effusion is slightly larger than on the previous study of 03/30/2019. Considering differences in technique and inspiration otherwise are has been no significant change. IMPRESSION: Worsening right pleural effusion. Electronically signed by Javed Baig 03/31/2019 7:10 AM
--- NOTE | 2019-03-31 07:42 | PROGRESS NOTE ---
DATE: 03/31/2019 INDICATION FOR PROLONGED HOSPITALIZATION: Refractory, nonresolving consolidation complicated by parapneumonic pleural effusion. The patient states he has an uneventful night. However, he is not able to complete several sentences without coughing and without complaining of shortness of breath. Chest x-ray yesterday morning demonstrates interval improvement when compared to previous studies. This is an encouraging sign in that there has been no improvement in the pleural effusion by report over the past week. He has been kept in the hospital secondary to anticipated pulmonary opinion regarding further/final disposition and possible candidacy for bronchoscopy. VITAL SIGNS: Vitals this morning, blood pressure 140/72, temperature 98.3 degrees, pulse at 93, saturating 93% on room air. Cumulative Is and Os for this hospitalization 11.5 L in and 1.8 L out, putting him at +9.67 L, although there are several days that have not been recorded as far as output. I believe these numbers are unreliable. LABORATORY DATA: This morning, demonstrating a white blood cell count at 12.30, hemoglobin and hematocrit at 12.9 and 39.0, with platelets at 286,000. He continues with a left shift despite coverage with Levaquin and anaerobic coverage with clindamycin now for the past 3 days. Sodium is slightly low at 134 with chloride at 96. This would be a new development. BUN and creatinine at 9 and 0.6. AST and ALT are not obtained. No additional studies have returned either on the pleural fluid or serum regarding consolidation and pleural effusion in the right hemithorax. PHYSICAL EXAMINATION: HEENT: Unremarkable. Cardiovascular: Regular rate and rhythm. Lungs: With decreased breath sounds on the right hemithorax. Dullness to percussion about long term up posteriorly. There is inspiratory and expiratory wheezing which is a relatively new development compared to yesterday, yesterday's exam demonstrating some intermittent wheezing, clearing with coughing, now it appears to be more persistent. Abdomen: Unremarkable. Extremities: Benign, without clubbing, cyanosis, or edema. Neurological: Cranial nerves 2-12 are grossly intact. Patient is alert and oriented x3 without any cognitive deficiencies. IMPRESSION: A 73-year-old with the nonresolving pulmonary infiltrate complicated by pleural effusion. Pulmonary returns today for ongoing disposition and recommendations for inpatient versus outpatient management and workup. Persistence of pleural effusion continues to create a compromise in respiratory mechanics with shortness of breath and coughing. I am amenable to outpatient workup if this is acceptable with pulmonary. Considering his weekend x-rays and failure to improve, he has been kept inhouse to avoid any acute respiratory decompensation. The patient understands the course of treatment and plan. No further issues at this time. Note is dictated on the morning of rounds. cc: Emiliano Rachel,
--- NOTE | 2019-03-31 15:34 | Diag Imaging Result Doc PS360 ---
HIDA SCAN W/ EJECTION FRACTION - 03/31/2019 INDICATION: elevated LAE and RUQ pain COMPARISON: None FINDINGS: 4.1 millicuries of Choletec was administered. There is normal uptake and clearance by the liver. There is normal excretion into the gallbladder and small bowel. A fatty meal was given. The gallbladder ejection fraction is 52%. IMPRESSION: Negative exam. An abnormally low ejection fraction (less than 35%) can be present in patients without gallbladder dyskinesis or chronic cholelithiasis to have other medical conditions. These include but are not limited to, patients with diabetic mellitus, irritable bowel syndrome, , gastroenteritis. peptic ulcer disease, and patients receiving morphine or nifedipine. Electronically signed by Brandin Rowell 03/31/2019 3:31 PM
--- NOTE | 2019-03-31 17:28 | GENERAL SURGERY CONSULTATION ---
DATE: 03/31/2019 Mr. Ying is a pleasant 73-year-old gentleman who was admitted on the due to cough and fever. He was found to have a rather large right pleural effusion. It has not been able to be removed by typical method of thoracenteses. He was treated with antibiotics as an outpatient but this did not resolve the issue so he is admitted for IV antibiotic therapy. Attempted thoracentesis produced only 60 mL despite a significant low-density area in the right pleural space. His other medical problems include obstructive sleep apnea, gastroesophageal reflux, dyslipidemia, hypertension, nephrolithiasis, BPH, osteoarthritis. PAST SURGICAL HISTORY: Previous surgery includes back surgery and knee surgery. MEDICATIONS: Listed. ALLERGIES: Sulfa. SOCIAL HISTORY: He is retired from a local [employer] company. He is a former smoker. Has not smoked for 30 years. He is , has an attentive . FAMILY HISTORY: Pertinent for coronary disease, hypertension, dyslipidemia, diabetes. REVIEW OF SYSTEMS: Otherwise negative except as noted above in the HPI. He is afebrile, heart rate 101, blood pressure 132/71. He has diminished breath sounds on the right base as compared to the left.Heart: Regular rate and rhythm. Abdomen: Soft. No peripheral edema. He is awake and alert. LABS: White count is 12,300, hemoglobin 12.9, hematocrit 39. BUN 9, creatinine 0.6. ASSESSMENT: Right pleural effusion. It is not amenable to thoracentesis. Been asked to do a thoracoscopy, possible thoracotomy for evacuation of the pleural space. I have discussed this procedure with Mr. Ying the benefits and risks, the possible need for conversion to a thoracotomy for clearance of the pleural space. He understands these things and agrees to proceed. cc: MD Emiliano Valdez, DO
[2019-03-31] MEDS: LEVAQUIN PO SCH (17:42)
[2019-03-31] MEDS: NORCO-7.5 PO PRN ×2 (17:42)
[2019-03-31] MEDS: TUSSIONEX LIQUID PO SCH ×2 (17:44→22:12)
[2019-03-31] MEDS: COLACE PO SCH ×2 (17:44→22:13)
[2019-03-31] MEDS: XANAX PO SCH ×2 (17:44→22:10)
[2019-03-31] MEDS: LEXAPRO PO SCH (17:45)
[2019-03-31] MEDS: PRILOSEC PO SCH (17:45)
[2019-03-31] MEDS: CULTURELLE PO SCH ×2 (17:45→22:10)
[2019-03-31] MEDS: CELEBREX PO SCH (22:13)
--- NOTE | 2019-03-31 22:21 | PULMONOLOGY PROGRESS NOTE ---
DATE: 03/31/2019 INTERIM HISTORY: Events of the weekend have been reviewed. The patient underwent repeat CT scan of the thorax on 03/28/2019, with actual increase in size of the loculated pleural effusion over the last 4 days. Cytology reports from 1st thoracentesis were negative for malignancy. All cultures have been negative. OBJECTIVE: Vital Signs: Maximum temperature in the last 24 hours is 99.4 degrees. He has had his maximum temperature during the whole hospital stay has been 100.6 degrees. BP 132/71, heart rate 101, respiratory rate 14, oxygen saturation 90% on nasal cannula. HEENT: Pupils are equal and reactive. Oropharynx clear. Neck: Supple. Chest: Reveals markedly diminished breath sounds throughout the right hemithorax. Cardiac: S1, S2. Abdomen: Soft without hepatosplenomegaly. Extremities: Without edema. LABORATORIES: Chest x-ray today reveals slight increase in pleural effusion compared with 03/30/2019. IMPRESSION: A 73-year-old with 1. Right lower lobe pneumonia. 2. Progressive increase in loculated effusion/parapneumonic effusion. 3. Exudative pleural effusion with negative cytology and negative cultures. 4. Gastroesophageal reflux disease. DISCUSSION: A 73-year-old with problems outlined above. Attempt to drain pleural effusion with thoracentesis have been unsuccessful. The right hemithorax needs to be drained for him to clinically improve. His white blood count has actually increased over the last 24 hours. At this juncture, I believe he will need evaluation of the chest. Given the loculated nature of the effusion, I doubt a simple chest tube thoracostomy will be adequate. I believe he will require a thoracoscopy or a minithoracotomy to drain this effusion. This would also permit evaluation of the right pleural space for possible etiology for the event. RECOMMENDATIONS: 1. Continue oxygen for hypoxemic respiratory failure. 2. Continue current antibiotic regimen. 3. Recommend surgical evaluation for thoracoscopy and possible thoracotomy. This was discussed with the patient and his , and Dr. Vikram Meeks will be consulted. cc: MD Emiliano Muse DO
[2019-04-01] MEDS: TYLENOL PO PRN (05:29)
[2019-04-01] MEDS: CLEOCIN PO SCH ×4 (05:29→22:22)
--- NOTE | 2019-04-01 06:55 | PROGRESS NOTE ---
DATE: 04/01/2019 INDICATION FOR PROLONGED HOSPITALIZATION: Progressive loculated pleural effusion with right lower lobe pneumonia now anticipating surgical intervention with probable thoracotomy and surgical drainage. I appreciate the input of General Surgery Service and input from returning attending anesthesiologist. Overnight, the patient has been clinically stable. This morning, blood pressure 120/64, temperature 98.1 degrees, pulse at 87, and saturating 97% on room air. OBJECTIVE: HEENT is unremarkable. Cardiovascular regular rate and rhythm. Lungs with decreased breath sounds on the right. Some scattered wheezing is appreciated on today's a exam. Abdomen is unremarkable and extremities are unremarkable. Cranial nerves 2-12 are grossly intact. Patient is alert and oriented x3 without any cognitive deficiencies. LABORATORY: Last set of labs dated yesterday, no new and/or additional labs for today. Patient underwent a HIDA scan yesterday for elevated liver enzymes. HIDA scan is noted to be unremarkable. Pulmonary and General Surgery notes and opinions are reviewed. ASSESSMENT AND PLAN: His right-sided pleural effusion based on it's loculated nature is not amenable to thoracentesis. Thoracoscopy plus or minus thoracotomy is anticipated. We will continue to follow in this regard. DISPOSITION: I have told the patient that I will return this evening following the procedure. He might spend the night in the ICU depending on findings at the time of the thoracoscopy. I have no new and/or additional recommendations at this time. The patient understands the course of treatment and plan. Note is dictated on the morning of rounds. cc: Emiliano Rachel DO
[2019-04-01] MEDS: COLACE PO SCH ×2 (09:00→22:21)
[2019-04-01] MEDS: XANAX PO SCH ×2 (09:00→22:21)
[2019-04-01] MEDS: LEVAQUIN PO SCH (09:01)
[2019-04-01] MEDS: CULTURELLE PO SCH ×2 (09:01→22:23)
[2019-04-01] MEDS: TUSSIONEX LIQUID PO SCH (09:01)
[2019-04-01] MEDS: LEXAPRO PO SCH (09:01)
[2019-04-01] MEDS: PRILOSEC PO SCH (09:01)
[2019-04-01] MEDS ORDERED: XYLOCAINE-MPF 2% ONE (10:14)
[2019-04-01] MEDS ORDERED: QUELICIN (DOSE) ONE (10:15)
[2019-04-01] MEDS ORDERED: DIPRIVAN 1% ONE (10:16)
[2019-04-01] MEDS ORDERED: LR 1,000 ML ONE (10:58)
[2019-04-01] MEDS ORDERED: MARCAINE 0.25% PF/EPI 1:200,000 ONE (10:58)
[2019-04-01] MEDS ORDERED: DUONEB (A & A) INH ONE (11:04)
[2019-04-01] MEDS ORDERED: FENTANYL ONE (11:46)
[2019-04-01] MEDS ORDERED: KEFZOL 1 GM/D5W 1 GM/50 ML IVPB ONE (12:03)
[2019-04-01] MEDS ORDERED: NORCURON ONE ×2 (12:27→13:17)
[2019-04-01] MEDS ORDERED: ALBUMIN 25% ONE (13:15)
[2019-04-01] MEDS ORDERED: NS 0 ML ONE (13:17)
[2019-04-01] MEDS ORDERED: SODIUM CHLORIDE 0.9% 10 ML ONE (13:17)
[2019-04-01] MEDS ORDERED: NEO-SYNEPHRINE ONE (13:17)
[2019-04-01] MEDS ORDERED: EXPAREL 1.3% ONE (13:32)
[2019-04-01] MEDS ORDERED: MARCAINE 0.25% ONE (13:32)
[2019-04-01] MEDS ORDERED: ROBINUL ONE (13:47)
[2019-04-01] MEDS ORDERED: NS 1,000 ML ONE ×3 (13:48→14:32)
[2019-04-01] MEDS ORDERED: NEOSTIGMINE ONE (13:56)
[2019-04-01] MEDS: DILAUDID ONE ×6 (14:32→15:07)
[2019-04-01] MEDS ORDERED: DILAUDID PCA VIAL ONE (14:35)
[2019-04-01 14:42] LABS: URINE SOURCE CATH
--- NOTE | 2019-04-01 14:47 | Diag Imaging Result Doc PS360 ---
EXAM: CHEST-PORTABLE HISTORY: thoracotomy TECHNIQUE: Portable chest COMPARISON: 03/31/2019 FINDINGS: There are right lateral skin ele and right chest tubes on the current exam. Interval decrease in the right pleural fluid with partial reexpansion of the right lung. There are dense infiltrates which remain in the mid right lung. Heart is mildly enlarged. IMPRESSION: Interval improvement in the right Electronically signed by Denis Lira 04/01/2019 2:45 PM
[2019-04-01 14:58] LABS: BILIRUBIN URINE NEGATIVE (NEGATIVE); BLOOD URINE TRACE (NEGATIVE); COLOR YELLOW; GLUCOSE URINE NEGATIVE (NEGATIVE); KETONE URINE TRACE mg/dL (NEGATIVE); LEUKOCYTES URINE NEGATIVE (NEGATIVE); NITRITE URINE NEGATIVE (NEGATIVE); PROTEIN URINE NEGATIVE (NEGATIVE); SP GRAVITY URINE 1.005; TURBIDITY URINE CLEAR (CLEAR); UROBILINOGEN URINE 2 mg/dL (NORMAL)
[2019-04-01] MEDS ORDERED: NARCAN IV PRN (15:00)
[2019-04-01] MEDS ORDERED: ZOFRAN IV PRN (15:00)
[2019-04-01] MEDS ORDERED: DILAUDID PCA VIAL IV PRN (15:00)
[2019-04-01] MEDS ORDERED: NARCAN 0.4 MG in LR 1,000 ML IV PRN (15:00)
[2019-04-01] MEDS ORDERED: LR 1,000 ML IV SCH (15:00)
[2019-04-01 15:01] LABS: UR EPITHELIAL CELLS <10 /HPF (<10); URINE BACTERIA NEGATIVE /HPF; URINE WBC <10 /HPF (<10)
--- NOTE | 2019-04-01 17:15 | OPERATIVE NOTE ---
PROCEDURE DATE: 04/01/2019 PROCEDURE PERFORMED: Right thoracoscopy; right lateral thoracotomy with decortication of the right lung. SURGEON: Vikram Meeks MD. ASSISTANTS: Jonathon Uribe RN. BERNY Kendrick. PREOPERATIVE DIAGNOSES: 1. Right lung pneumonia. 2. Right loculated effusion. POSTOPERATIVE DIAGNOSES: 1. Right lung pneumonia. 2. Right loculated effusion. 3. Lower lung rind. DESCRIPTION OF PROCEDURE: Satisfactory general endotracheal anesthesia was achieved. A double- lumen tube was placed. He was appropriately positioned so that we could deflate the right lung. After that was placed and secured, the patient was placed in right lateral decubitus position with the right side up. The right chest was then prepped and draped in a sterile fashion. We marked the skin 2 fingerbreadths below the scapular tip in an oblique fashion. We then anesthetized the skin along the course of that micah anteriorly and about the anterior axillary line and then in the mid axillary line. We entered the pleural space with a 10 size Thoracoport. We introduced the videolaparoscope, and all we could see was gelatin. Fortunately, the lung did decompress. We could not see any normal lung. We were able to suction out some of the fluid through the Thoracoport. It was obvious that we would not be able to do an adequate job of clearing the pleural space and removing what rind was present, so we then converted to a right lateral thoracotomy following the same course of the line that had been marked. We then came through the latissimus. Came through the serratus anterior and into the pleural space at the level of the 2 Thoracoport sites. We then placed a rib chicken vaccinator. We spread the ribs gently and gradually. We then entered the pleural space and began evacuating the gelatin throughout the extent of the pleural space. It was stuck to the visceral pleura as well as the parietal pleura. We had to use a lap pack to rub against the parietal pleura to remove all the proteinaceous debris and rind. We did this and was able to expose the diaphragm. We then used a French forceps along the lower lobe to remove the rind circumferentially around the lower lobe. We were able to identify the large major fissure. After extensive decortication of the lower lobe, it was felt that the lower lobe would expand adequately. We were able to free up the upper lobe as well and evacuate the pleural space in the upper portion of the lung. The upper lung was not nearly involved like the lower lung. The middle lobe really could not be differentiated from the upper lobe, and I did not try to identify the minor fissure. The major fissure was completely opened up, and all the rind was removed from the major fissure as well. There was generalized oozing. After removing the circumferential rind from around the lower lung, we then expanded the lower lung. It did expand quite nicely much better than it would have originally. We copiously irrigated the pleural space. We evacuated all the fluid and the residual debris that was free. We then placed two 32 chest tubes, 1 going anteriorly and superiorly to the apex and the other going more posteriorly with an additional hole cut to go right inside the pleura to evacuate the lower pleural space. These were secured to the skin with 0 silks. I then used ProGEL along the course of the lower lobe in case any air leak was present., but really there was minimal air leak present. So, we were quite satisfied with the lower lung expansion in the upper and middle lobes as well. We then used a mixture of 20 mL of Exparel and 40 mL of 0.25 plain Marcaine. We used half of it along the course of the intercostal space above our incision and below our incision. We then drilled 3 holes in the rib below the incision and 3 holes above and used #2 Tycron stitches to go through the ribs to reapproximate them. We closed the serratus with a running 1 Polysorb. We closed the latissimus with a running 1 Polysorb. Used the rest of our Exparel and Marcaine to infuse in the subcutaneous tissue for incisional pain relief. We then closed the subcutaneous fascia with #0 Polysorb running, and then the skin was closed with ele. The chest tubes were attached to Pleur-evacs. He tolerated procedure satisfactorily and was sent to the recovery room in stable condition. cc: MD Emiliano Valdez DO James E. Boyle, MD
[2019-04-01 17:19] LABS: ALLEN TEST YES; BE 0.3 mmoll (-3.0-3.0); BLOOD TYPE ARTERIAL; HCO3-(ACT) 25.1 mmoll (20.0-26.0); METHB 1.1 % (0.0-1.5); O2(CT) 17.3 mL/dL (15.0-23.0); O2HB 94.1 % (95.0-99.0); PCO2(98.6) 42 mmHg (35-45); PO2(98.6) 82 mmHg (60-100); SAMPLE BLOOD; SAO2 97.1 % (95.0-100.0); pH(98.6) 7.39 (7.35-7.45)
[2019-04-01 17:20] LABS: MODALITY SIMPLE MASK
[2019-04-01] MEDS ORDERED: ATIVAN IV ONE (17:42)
[2019-04-01 17:46] LABS: HEMOGLOBIN 12.8 g/dL (14.0-18.0)
--- NOTE | 2019-04-01 18:28 | PROGRESS NOTE ---
DATE: 04/01/2019 INDICATION FOR PROLONGED HOSPITALIZATION: Status post right thoracoscopy with right lateral thoracotomy and decortication of the right lung. The patient is recently out of surgery and sitting up in bed, complaining of dry mouth. Some ice chips are offered. He has presence of 2 chest tubes. Operative report is briefly reviewed and discussed with the patient and the . There are some issues with regards to tachycardia, and ABG and CBC are pending at the time of dictation. Most recent set of vitals: Pulse at 128, blood pressure at 105/66, saturating at 96%. Medications currently on board for blood pressure include none. We will offer the patient a very small amount, a single dose, of Ativan for anxiety. 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 We will be holding the [place] by mouth secondary to ongoing use of Dilaudid and potential to exacerbate respiratory drive as well as decrease pressure. DISPOSITION: I will round in the morning. The patient and understand the course of treatment and plan. No further issues at this time. cc: Emiliano Rachel DO
--- NOTE | 2019-04-01 20:03 | GENERAL SURGERY PROGRESS NOTE ---
DATE: 04/01/2019 EXAMINATION: Mr. Ying is postop a thoracotomy and decortication. He is awake and alert. His heart rate is 138. He is afebrile. Blood pressure is 105 systolic. PLAN: The plan will be to check a stat hemoglobin on him. We will also check blood gases on him to be sure that he is oxygenating adequately. We will keep him on telemetry. cc: MD Emiliano Valdez, DO
[2019-04-01] MEDS: KEFZOL 1 GM/D5W 1 GM/50 ML IVPB IV SCH (20:34)
[2019-04-01] MEDS: PERIDEX MT SCH (22:23)
[2019-04-01] MEDS: CELEBREX PO SCH (22:23)
--- NOTE | 2019-04-01 23:57 | PULMONOLOGY PROGRESS NOTE ---
DATE: 04/01/2019 SUBJECTIVE: Patient went to the operating room this afternoon. Operative note was reviewed. The surgery began as a thoracoscopy, but due to the gelatinous nature of the pleural effusion and along with a pleural rind on the lung surface, the surgical case was converted to a thoracotomy. Extensive decortication was performed. The patient is now awake and alert. He reports some pain but is using a RAILROAD EMERG[employer]Y SERVICES MANAGER pump. He has no increased work of breathing. OBJECTIVE: Vital Signs: Blood pressure 114/74, heart rate 122, respiratory rate 16, oxygen saturation 96%. HEENT: Pupils are equal and reactive. Oropharynx is clear. Neck: Supple. Chest: Reveals better air flow at the right base. Two chest tubes are identified. No definite air leak identified with cough. Cardiac: Increased rate, regular rhythm. Abdomen: Soft with good bowel sounds. Extremities: Without edema. LABORATORIES: Chest x-ray reveals 2 chest tubes in position with partial reexpansion of the right lung base. Arterial blood gas on 50% face mask, pH 7.39, pCO2 of 42, PO2 of 82. IMPRESSION: A 73-year-old with 1. Right lower lobe pneumonia. 2. Complex pleural effusion with pleural rind, status post decortication. 3. Acute hypoxemic respiratory failure. 4. Gastroesophageal reflux disease. DISCUSSION: A 73-year-old with problems outlined above. Radiographically, he appears to be improved. RECOMMENDATIONS: 1. Continue RAILROAD EMERG[employer]Y SERVICES MANAGER pump for pain control. 2. Continue current antibiotic regimen. 3. Await pathology report from thoracotomy. 4. Initiate DVT prophylaxis tomorrow, if acceptable with General surgery. 5. Continue bronchial hygiene. cc: MD Emiliano Muse,
[2019-04-02] MEDS: KEFZOL 1 GM/D5W 1 GM/50 ML IVPB IV SCH ×3 (04:14→21:12)
[2019-04-02] MEDS: NS 1,000 ML IV PRN ×2 (04:18→18:23)
[2019-04-02 06:29] LABS: BASO# 0.02 X1000 (0.0-0.2); BASO% 0.2 % (0.0-0.8); EOS# 0.02 X1000 (0.0-0.7); EOS% 0.2 % (0.0-10.0); HEMATOCRIT 35.5 % (42.0-52.0); HEMOGLOBIN 11.2 g/dL (14.0-18.0); LYMPH# 0.75 X1000 (1.2-3.4); LYMPH% 7.4 % (20.5-51.1); MCH 28.3 PG (27-31); MCHC 31.5 g/dL (33-37); MCV 89.6 FL (81-99); MONO# 0.91 X1000 (0.11-0.59); MPV 9.1 FL (7.4-10.4); NEUT# 8.46 X1000 (1.4-6.5); NEUT% 83.2 % (42.2-75.2); PLT 332 X1000 (130-400); RBC 3.96 XMIL (4.7-6.1); RDW 14.3 % (11.5-14.5); WBC 10.16 X1000 (4.8-10.8)
--- NOTE | 2019-04-02 06:34 | Diag Imaging Result Doc PS360 ---
CHEST-PORTABLE - 04/02/2019 INDICATION: thoracotomy COMPARISON: 04/01/2019 FINDINGS: Stable double right chest tubes. Stable extensive consolidation of the right lung base. No definite pneumothorax or pleural effusion. There is mild cardiomegaly. There is some scattered linear atelectasis in the left lung base. The left basilar infiltrate has improved. IMPRESSION: Improvement of the small left basilar infiltrate. No complication. Electronically signed by Brandin Rowell 04/02/2019 6:32 AM
[2019-04-02 06:42] LABS: AGAP 6; BUN 10 mg/dL (8-22); CALCIUM 8.2 mg/dL (8.8-10.2); CHLORIDE 100 mmol/L (98-107); COSMO 273; CREATININE 0.6 mg/dL (0.7-1.2); ESTIMATED GFR > 60; GLUCOSE 134 mg/dL (70-104); POTASSIUM 4.2 mmol/L (3.5-5.1); SODIUM 136 mmol/L (136-145); TCO2 30 mmol/L (25-35)
[2019-04-02] MEDS: PERIDEX MT SCH ×2 (08:36→21:10)
[2019-04-02] MEDS: XANAX PO SCH ×2 (08:36→21:12)
[2019-04-02] MEDS: PRILOSEC PO SCH (08:36)
[2019-04-02] MEDS: COLACE PO SCH ×2 (08:36→22:38)
[2019-04-02] MEDS: CLEOCIN PO SCH ×3 (08:36→21:10)
[2019-04-02] MEDS: LEXAPRO PO SCH (08:36)
[2019-04-02] MEDS: CULTURELLE PO SCH ×2 (08:36→21:10)
[2019-04-02] MEDS: LEVAQUIN PO SCH (08:37)
--- NOTE | 2019-04-02 15:37 | GENERAL SURGERY PROGRESS NOTE ---
DATE: 04/02/2019 SUBJECTIVE: he is postop day 1 after a lateral thoracotomy and decortication. OBJECTIVE: He is afebrile, heart rate is down 86. Blood pressure 122/66. He has some bloody serous fluid in his drain. No air leak is noted. IMAGING: His chest x-ray shows much better expansion of his lung. LABORATORY DATA: Today his hemoglobin is 11.2, hematocrit 35, white count 24971. Chemistry is okay. PLAN: Continue with his pleural drainage for now. He needs to do good pulmonary toilet and use an incentive spirometer to expand his lungs as best he can. I think he is progressing satisfactorily. cc: MD Emiliano Valdez, DO
[2019-04-02] MEDS ORDERED: MIRALAX PO ONE (18:04)
--- NOTE | 2019-04-02 19:33 | PROGRESS NOTE ---
DATE: 04/02/2019 INDICATION FOR PROLONGED HOSPITALIZATION: Hospital day #2, status post dual chest tube placement for loculated pleural effusion, status post right thoracoscopy and right lateral thoracotomy with decortication of the right lung. Patient continues to improve postoperatively. VITAL SIGNS: Most recent set of vitals are blood pressure 118/65, respirations at 18, pulse at 81, temperature at 98.6 degrees, ins and outs 1270 in, 950 out for +320. Chest tube #1 at 185 mL, chest tube #2 at 265 mL. LABORATORY: For today, hemoglobin and hematocrit at 11.2 and 35.5 with white blood cell count improved from 12.3 to 10.1, platelets at 332,000. Chemistry is unremarkable. BUN and creatinine at 10 and 0.6. Pleural fluid dated 03/26/2019 negative, Gram stain dated 03/26/2019 negative, blood cultures dated 03/24/2019 negative. PHYSICAL EXAMINATION: HEENT: Unremarkable. Cardiovascular: Unremarkable. Lungs: With better aeration and respiratory sounds in the right posterior lungs. Breath sounds heard down to the lower posterior third. Abdomen: Not assessed. Extremities: Benign. Neurological: Cranial nerves 2 through 12 are grossly intact. Patient is alert and oriented x3 without any cognitive deficiencies. IMPRESSION: A 73-year-old gentleman with dual chest tubes for loculated effusion. He reports better respirations, still somewhat painful with regards to chest tube placement. General surgery recommending ongoing chest tube draining. Conversation centering around discontinuation of the chest tubes and ultimately discharge to home. Chest x-ray is reviewed at the bedside with the patient showing a circular density within the right middle lobe. We have agreed to continue with Levaquin and clindamycin as well as ongoing surgical and pulmonary input with regards to longevity of chest tube placement. We did discuss the indications for possible bronchoscopy for nonresolving pulmonary infiltrates. I will defer to Dr. Ying in this regard. It may be premature to make this recommendation at this time considering the events over the past 7 to 10 days. Some issues with regards to constipation, initiation of MiraLAX 17 g once daily. Patient understands the course of treatment and plan. No further issues at this time. I have advised the patient that I will be rounding tomorrow afternoon rather than in the morning. This will give opportunity for General Surgery, pulmonology and perhaps myself to confer about plans for discharge and outpatient followup. and patient understand the course of treatment and plan. No further issues at this time. cc: Emiliano Rachel, DO
[2019-04-02] MEDS: CELEBREX PO SCH (21:10)
[2019-04-02] MEDS: METAMUCIL PO SCH (22:38)
[2019-04-02] MEDS ORDERED: NS 1,000 ML IV PRN (22:51)
--- NOTE | 2019-04-03 03:57 | PULMONOLOGY PROGRESS NOTE ---
DATE: 04/02/2019 SUBJECTIVE: The patient is awake, alert, and conversant. He has not been out of bed. He is using his incentive spirometry and can pull approximately 2000 mL. OBJECTIVE: Vital Signs: Maximum temperature in the last 24 hours 99.6 degrees. Blood pressure 109/64, heart rate 98, respiratory rate 19, oxygen saturation 94% on room air. HEENT: Pupils are equal and reactive. Oropharynx is clear. Neck: Supple. Chest: Reveals crackles at the right base. Cardiac: S1, S2. Abdomen: Soft. Extremities: Without edema. LABORATORIES: No new culture data. Sodium 136, potassium 4.2, chloride 100, BUN 10, creatinine 0.6. White blood count 10.16, hemoglobin 11.2, platelet count 332,000. Chest x-ray reveals 2 chest tubes in the right hemithorax. Consolidation at the right base with some marginal increased aeration. Small infiltrate left base. IMPRESSION: A 73-year-old with 1. Right lower lobe pneumonia. 2. Complex parapneumonic effusion with pleural rind, status post decortication. 3. Acute hypoxemic respiratory failure. 4. Gastroesophageal reflux disease. RECOMMENDATIONS: 1. Continue pain control. 2. Decrease IV fluids. It is anticipated that he will begin diuresis. 3. Await pathology from thoracotomy. 4. Initiate DVT prophylaxis. 5. The patient needs to be mobilized. He needs to get out of bed. He needs to begin ambulation. See order set. 6. Continue bronchial hygiene. cc: MD Emiliano Muse, DO
[2019-04-03] MEDS: CLEOCIN PO SCH ×4 (04:23→20:56)
[2019-04-03] MEDS: KEFZOL 1 GM/D5W 1 GM/50 ML IVPB IV SCH (04:25)
[2019-04-03] MEDS: LASIX IV ONE ×4 (04:26→17:30)
--- NOTE | 2019-04-03 07:26 | Diag Imaging Result Doc PS360 ---
EXAM: CHEST-PORTABLE 04/03/2019 HISTORY: post decortication TECHNIQUE: AP portable at 0618 COMMENT: There are two chest tubes on the right. There is a line of surgical skin ele on the right side. There is no evidence of significant pneumothorax or pleural fluid collection. There is some atelectasis in the left costophrenic angle region and ill-defined and coarse opacity is present in the mid and lower lung field on the right. This may be slightly improved in the right base since 04/02/2019. IMPRESSION: Improved atelectasis versus pneumonia on the right. Minimal basilar atelectasis on the left. Electronically signed by Javed Baig 04/03/2019 7:23 AM
[2019-04-03] MEDS: METAMUCIL PO SCH ×2 (08:40→20:55)
[2019-04-03] MEDS: COLACE PO SCH ×2 (08:40→20:55)
[2019-04-03] MEDS: LEXAPRO PO SCH (08:40)
[2019-04-03] MEDS: LOVENOX SUBQ SCH ×2 (08:40→08:46)
[2019-04-03] MEDS: XANAX PO SCH (08:40)
[2019-04-03] MEDS: CULTURELLE PO SCH ×2 (08:40→20:56)
[2019-04-03] MEDS: LEVAQUIN PO SCH (08:40)
[2019-04-03] MEDS: PRILOSEC PO SCH (08:41)
[2019-04-03] MEDS: PERIDEX MT SCH ×2 (08:41→20:56)
[2019-04-03] MEDS ORDERED: NORCO-10 PO PRN (10:04)
--- NOTE | 2019-04-03 16:06 | PROGRESS NOTE ---
DATE: 04/03/2019 INDICATION FOR ONGOING HOSPITALIZATION: Ongoing pleural evacuation with chest tube. One chest tube has been removed and Morales has been discontinued. Patient has been seen by the general surgeon this morning, and anticipates 2nd chest tube removal tomorrow, raising concern for possible discharge. Chest x-ray shows persistence of abnormality within the right middle lobe, perhaps not nearly as radiopaque as previous days. There does appear to be some interval improvement. PHYSICAL EXAMINATION: Vital signs: Blood pressure 119/65, pulse 103, respirations 18, temperature 98.3 degrees, saturating 93% on room air. Intake and output, 2858 in and 4530 out for negative 1.67 L. He is down approximately and an additional 1.1 L. LABORATORY DATA: There is no laboratory for today and cultures to date including pleural fluid and blood cultures are noted to be negative. The patient does continue on clindamycin and Levaquin. PHYSICAL EXAMINATION: HEENT: Unremarkable. Cardiovascular: Regular rate and rhythm without murmurs, gallops, or rubs. Lungs: With decreased but auscultatable breath sounds on the right mid to lower lobe, not nearly as robust as they were yesterday. Left hemithorax is unremarkable. Abdomen: Unremarkable. Extremities: Benign, without clubbing, cyanosis, or edema. Neurological: Cranial nerves 2-12 grossly intact. Patient is alert and oriented x3 without any cognitive deficiencies. IMPRESSION AND PLAN: A 73-year-old with a right-sided pulmonary process presumed to be pneumonia in nature further complicated by extensive pleural effusion, status post several days of right- sided thoracotomy with decortication of the right lung, status post 2 chest tubes placed for ongoing of evacuation of the pleural space. One chest tube has been discontinued as of today. The other remains at the discretion of the General Surgery Service. Ultimately, discontinuation of the chest tube and ongoing oral antibiotic therapy with discussion to potentially discharge the patient to home over the course of the next 2 to 3 days pending clinical improvement and approval from both Pulmonary and General Surgery Service. We did discuss options for nonresolving pulmonary infiltrate including transthoracic biopsy and/or bronchoscopy with bronchoalveolar lavage. I will defer to Pulmonology in this regard. There are no new and/or additional recommendations at this time. Note is dictated on the afternoon of rounds. cc: Emiliano Rachel DO
--- NOTE | 2019-04-03 16:20 | GENERAL SURGERY PROGRESS NOTE ---
DATE: 04/03/2019 SUBJECTIVE: He is now 2 days after his right lateral thoracotomy with decortication. OBJECTIVE: There is no air leak. He has drained serosanguineous fluid. His chest x-ray does show insufflation of the lower lobe. PLAN: Plan is to remove his anterior chest tube. Perhaps we will get his posterior chest tube out over the weekend. I think he is progressing satisfactorily. cc: MD Emiliano Valdez, DO
[2019-04-03] MEDS: CELEBREX PO SCH (20:55)
--- NOTE | 2019-04-03 22:06 | PULMONOLOGY PROGRESS NOTE ---
DATE: 04/03/2019 SUBJECTIVE: The patient is awake and alert. He has been getting out of bed. He has been ambulating to the bathroom. OBJECTIVE: Vital Signs: The patient has been afebrile for the last 24 hours. Blood pressure is 110/81, heart rate 101, respiratory rate 18, oxygen saturation 95% on room air. HEENT: Pupils are equal and reactive. Oropharynx is clear. Neck: Supple. Chest: Reveals better air flow at the left base. Cardiac: S1, S2. Abdomen: Soft. Extremities: Without edema. LABORATORY DATA: Significant improvement at the right base with better aeration. No new microbiology data. No new chemistry or CBC. IMPRESSION: The patient is a 73-year-old with: 1. Right lower lobe pneumonia. 2. Complex parapneumonic effusion with a pleural rind. 3. Hypoxemic respiratory failure. 4. Gastroesophageal reflux. PLAN: 1. Agree with the removal of chest tube as outlined per Dr. Meeks. 2. Encourage incentive spirometry. 3. Continue antibiotics. 4. Ambulate as tolerated. 5. Chest x-ray follow up tomorrow. cc: MD Emiliano Muse DO
[2019-04-04] MEDS: XANAX PO SCH ×3 (00:26→22:31)
[2019-04-04] MEDS: CLEOCIN PO SCH ×4 (05:14→22:18)
[2019-04-04 06:32] LABS: HEMATOCRIT 32.2 % (42.0-52.0); HEMOGLOBIN 10.3 g/dL (14.0-18.0); MCH 28.3 PG (27-31); MCV 88.5 FL (81-99); MPV 8.8 FL (7.4-10.4); RBC 3.64 XMIL (4.7-6.1); WBC 8.45 X1000 (4.8-10.8)
[2019-04-04 06:52] LABS: AGAP 13; ALB/GLOB RATIO 0.7; ALBUMIN 2.6 g/dL (3.5-5.0); ALKALINE PHOSPHATASE 158 U/L (32-122); BUN 12 mg/dL (8-22); CALCIUM 8.5 mg/dL (8.8-10.2); CHLORIDE 101 mmol/L (98-107); COSMO 282; CREATININE 0.6 mg/dL (0.7-1.2); ESTIMATED GFR > 60; GLUCOSE 109 mg/dL (70-104); GOT 31 U/L (10-34); GPT 33 U/L (10-44); MAGNESIUM 2.2 mg/dL (1.5-2.7); PHOSPHORUS 3.5 mg/dL (2.7-4.5); POTASSIUM 3.5 mmol/L (3.5-5.1); SODIUM 141 mmol/L (136-145); TCO2 27 mmol/L (25-35); TOTAL BILIRUBIN 0.44 mg/dL (0.20-1.00); TOTAL PROTEIN 6.2 g/dL (6.3-8.3)
--- NOTE | 2019-04-04 07:57 | Diag Imaging Result Doc PS360 ---
CHEST-PORTABLE - 04/04/2019 INDICATION: abnormal exam COMPARISON: 04/03/2019 FINDINGS: The more inferior right chest tube has been removed. No significant pneumothorax or pleural effusion. Stable infiltrate throughout the right lung base. Stable apparent right hemidiaphragm elevation. The left lung is well expanded and clear. Stable cardiomegaly and pulmonary vascular congestion. IMPRESSION: Removal of one of the right-sided chest tubes. Otherwise no change from prior. Electronically signed by Brandin oRwell 04/04/2019 7:55 AM
[2019-04-04] MEDS: PERIDEX MT SCH ×2 (10:14→22:18)
[2019-04-04] MEDS: COLACE PO SCH ×2 (10:15→22:18)
[2019-04-04] MEDS: CULTURELLE PO SCH ×2 (10:15→22:19)
[2019-04-04] MEDS: LEXAPRO PO SCH (10:17)
[2019-04-04] MEDS: METAMUCIL PO SCH ×2 (10:17→22:18)
[2019-04-04] MEDS: LEVAQUIN PO SCH (10:18)
[2019-04-04] MEDS: LOVENOX SUBQ SCH (10:18)
[2019-04-04] MEDS: PRILOSEC PO SCH (10:18)
--- NOTE | 2019-04-04 12:35 | PROGRESS NOTE ---
DATE: 04/04/2019 INDICATION FOR PROLONGED HOSPITALIZATION: Patient has persistence of chest tube x1 in the right hemithorax for a loculated pleural effusion. He is several days postoperative from a thoracotomy with decortication of the lung. PHYSICAL EXAMINATION: Vitals: This morning, blood pressure 118/66, respirations at 20, temperature at 97.6 degrees, saturating 98% on room air. Input and Output: 1345 in and 1660 out, for -315. EVENTS OVER THE PAST 24 HOURS: Include audio visual equipment rental clerk notification from the nursing staff for an acute confusional state where patient was out of bed and trying to unintentionally remove his chest tube. Further questioning demonstrates several sequential nights of confusion. The patient recognizes that he is in the hospital; however he is reports some visual disturbance including a very ornately decorated room which elicits somewhat of an anxious and panicky feeling. He states that he has had this episode 2-3 nights now since his surgery. I am suspecting that this might be both pain medication mediated, unfamiliar circumstances and anesthesia. He denies having any similar experiences, but then recalls maybe an episode at home following his back surgery, the first night that he was home. He also volunteers 6 to 12 months of what he describes as a visual disturbance, some type of bright netting or drape-like hallucination that is intermittent and seems to be elicited with dark environments. These are nonthreatening, but this is a fairly recent development. He has not spoken of this to his secondary to her probable concern. I have also mentioned an increase in his tremor that is more noticeable and briefly discussed both a benign essential and even early Parkinsonism as being part of the differential diagnosis. PHYSICAL EXAMINATION: HEENT: Unremarkable. Cardiovascular: Regular rate and rhythm. Lungs: With no wheezes. Inspiratory crackles are suggested in the right mid to right lower lung. Again, decreased breath sounds on the right are appreciated as mentioned yesterday, not nearly as robust as day number 1, with chest tube placement. Extremities: Benign. Abdomen: Exam is deferred at this time. Neurological: Cranial nerves 2-12 are grossly intact. Patient is alert and oriented x3 without any cognitive deficiencies. IMPRESSION: A 73-year-old status post dense consolidation presumed to be pneumonia mediated, complicated by parapneumonic effusion with loculation, status post surgical intervention with chest tube placement. Anticipate chest tube removal sometime this weekend and then strong consideration for discharge to home with interval followup in the clinic. He does continue on Levaquin and clindamycin. Visual disturbances/hallucinations are somewhat concerning but might be explained with hospitalization, surgery, anesthesia and pain medications. We will follow clinically in this regard. With regards to tremor, a trial of primidone while he is hospitalized would be indicated. If this has little effect on the tremor over the course of the next several weeks, then an empiric trial of dopamine may be indicated. We can certainly follow up as an outpatient in this regard. DISPOSITION: It is my hope that once his chest tube is discontinued and from a surgical and pulmonary standpoint, there is no contraindication for him to be discharged, and that he might be discharged home as soon as this afternoon or perhaps tomorrow. I will await the final opinion from General Surgery Service and from Pulmonology in this regard. The patient understands the course of treatment and plan. No further issues at this time. Note is dictated on the morning of rounds. cc: Emiliano Rachel DO
[2019-04-04] MEDS: TYLENOL PO PRN ×2 (14:19→22:18)
--- NOTE | 2019-04-04 19:44 | GENERAL SURGERY PROGRESS NOTE ---
DATE: 04/04/2019 Mr. Ying is doing satisfactorily. He is breathing satisfactorily. He has not had much chest tube output. His chest x-ray shows some ventilation to his lower lung. The plan is to remove his posterior chest tube today and we will repeat his chest x-ray tomorrow in hopes that he can be discharged. I am pleased with his progress. cc: MD Emiliano Valdez, DO
--- NOTE | 2019-04-04 21:49 | PULMONOLOGY PROGRESS NOTE ---
DATE: 04/04/2019 SUBJECTIVE: The patient is awake, alert and conversant. He has been ambulating short distances. His second chest tube has been removed. OBJECTIVE: HEENT: Pupils are equal and reactive. Oropharynx appears clear. Neck is supple. Chest reveals decreased breath sounds, right base. Cardiac exam: S1, S2. Abdomen is soft and without hepatosplenomegaly. Extremities are without edema. LABORATORY DATA: White blood count 8.45, hemoglobin 10.3, platelet count 395,000. DIAGNOSTIC DATA: Chest x-ray reveals continued infiltrate at the right base. IMPRESSION: A 73-year-old with: 1. Right lower lobe pneumonia. 2. Complex pleural effusion requiring thoracoscopy. 3. Hypoxemic respiratory failure. 4. Gastroesophageal reflux. PLAN: 1. Continue incentive spirometry. 2. Continue to mobilize patient. 3. Continue antibiotics. 4. Follow up chest x-ray tomorrow. cc: MD Emiliano Muse, DO
[2019-04-04] MEDS: MYSOLINE PO SCH (22:17)
[2019-04-04] MEDS: CELEBREX PO SCH (22:18)
[2019-04-05] MEDS: MYSOLINE PO SCH ×2 (00:09→00:20)
[2019-04-05] MEDS: CLEOCIN PO SCH (05:05)
--- NOTE | 2019-04-05 08:21 | Diag Imaging Result Doc PS360 ---
CHEST-2 VIEWS - 04/05/2019 INDICATION: Right sided pneumonia COMPARISON: 04/04/2019 FINDINGS: The right-sided chest tube has been removed. Stable pleural effusion and atelectasis at the right lung base. There has been improvement in the right basilar infiltrate. The left lung is well expanded and clear. Heart size and pulmonary vascularity is normal. IMPRESSION: Removal of the right chest tube. Continued improvement from prior. Electronically signed by Brandin Rowell 04/05/2019 8:18 AM
[2019-04-05 08:42] VITALS: BP 113/86
--- NOTE | 2019-04-05 09:38 | GENERAL SURGERY PROGRESS NOTE ---
DATE: 04/05/2019 He is now 4 days after his lateral thoracotomy with decortication. He is doing generally well. His x-ray is much improved. He is afebrile with normal hemodynamics. His aeration of his right lower lobe is much improved. It is certainly okay with me that he be discharged. He will return to see me in 5 days for staple removal. cc: MD Emiliano Valdez, DO
[2019-04-05] MEDS: COLACE PO SCH (12:32)
[2019-04-05] MEDS: LEVAQUIN PO SCH (12:33)
[2019-04-05] MEDS: CULTURELLE PO SCH (12:33)
[2019-04-05] MEDS: LOVENOX SUBQ SCH (12:33)
[2019-04-05] MEDS: XANAX PO SCH (12:33)
[2019-04-05] MEDS: LEXAPRO PO SCH (12:33)
[2019-04-05] MEDS: PRILOSEC PO SCH (12:35)
[2019-04-05] MEDS: METAMUCIL PO SCH (12:35)
[2019-04-05] MEDS: PERIDEX MT SCH (12:35)
--- NOTE | 2019-04-07 09:17 | DISCHARGE SUMMARY ---
ADMISSION DATE: 03/25/2019 DISCHARGE DATE: 04/06/2019 DISCHARGE DIAGNOSES: 1. Right-sided consolidation suggestive of pneumonia, possibly aspirative type further complicated by loculated pleural effusion requiring surgical intervention. 2. Radiographic evidence of peripheral vascular disease involving the aorta and iliac arteries per CT scan dated 03/24/2019, right-sided kidney cyst and right-sided renal stones per CT scan. Splenomegaly of undetermined clinical significant with spleen measuring 4.3 cm. 3. Anemia not otherwise specified. 4. Confusional state following surgical intervention likely multifactorial including anesthesia, pain medications. Further investigation as an outpatient indicated if symptoms persist. PROCEDURES DURING ADMISSION: Including CT scan of the abdomen and pelvis on 03/24. Ultrasound guided thoracentesis on 03/26/2019, [address]. [address] of the chest 03/28/2019 with interval increased size of loculated pleural effusion since previous study dated 03/24. HIDA scan performed on 03/31/2019 for fever and history of elevated liver enzymes with normal ejection fraction. Operative intervention on 04/01 with right thoracoscopy and right lateral thoracotomy with decortication of the right lung secondary to right lung pneumonia and right loculated effusion. Chest tube placement x2 following surgical intervention for loculated pleural effusion. CONSULTATIVE OPINIONS: During hospitalization including Pulmonary and General Surgery. HOSPITAL COURSE: 73-year-old male admitted on 03/24 for radiographic evidence of right lower lobe complicated by a pulmonary effusion. He was started on empiric coverage for community-acquired pneumonia. Based on presence of pulmonary effusion, it was felt that a diagnostic/therapeutic thoracentesis would be indicated. Pulmonology was consulted. Based on chest x-ray findings, a Radiology assisted thoracentesis was performed but the effusion was loculated. Based on nonspecific right upper quadrant pain and elevated liver enzymes, it was felt that a HIDA scan would be beneficial. HIDA scan returned as negative. CT scan of the abdomen and pelvis was also unremarkable. The patient's clinical course over the weekend waned without any significant improvement despite coverage for anaerobes and ongoing broad spectrum coverage. Anesthesia recommended general surgery based on worsening pleural effusion, Surgery recommending procedure as above. Patient went to surgery. Underwent chest cavity evacuation with subsequent chest tube placement x2. X-ray improved slightly. Chest tubes were discontinued over the course of the several days following surgery and patient was felt appropriate to be discharged to home on the . Significant amount of bruising and posterior thoracic wound with stapling is noted at the time of discharge. Additional diagnostic screening including immunoglobulin levels was performed and noted to be negative. Lyme screen is noted to be negative. AFB smear on pleural fluid is noted to be negative. Fungal smear on pleural fluid is noted to be negative. Connective tissue disease fluid is noted to be negative including NORY titer and anti-CCP titer. DISCHARGE MEDICATIONS: 10-14 days of additional oral antibiotics including Levaquin and clindamycin after further consultation with Pulmonology. The remainder of his medications will continue including the followin. Xanax 0.5 mg p.o. b.i.d. 2. Celebrex 200 mg once daily. 3. Lexapro 10 mg once daily. 4. Omeprazole 40 mg once daily. 5. Simvastatin 40 mg once daily. Additional medications will include Levaquin 750 mg once daily for 14 days and clindamycin 300 mg q.6 for the next 20 days. The patient has interval followup for surgical staple removal the week following his discharge as well as Pulmonology followup as well. No new and/or additional recommendations at this time. cc: Emiliano Rachel DO
== END 2019-04-05 09:38 | disposition home or self-care (01) | DRG 164 ==
LOC: SUPCPDRO → ED 07:02 → 4N 11:54
PROVIDERS: ADMIT Internal Medicine; ATTEND Internal Medicine
PROC: GE.THRT (2019-04-01 11:52)
CPT/HCPCS: 32421; 32555; 36430; 71010; 71020; 71045; 71046; 71270; 71275; 74178; 78227; 80048; 80053; 81001; 82150; 82550; 82784; 82805; 82945; 83605; 83615; 83735; 83880; 83986; 84100; 84157; 84484; 85014; 85018; 85025; 85027; 85379; 85610; 85730; 86038; 86200; 86618; 86850; 86900; 86901; 86920; 87040; 87070; 87102; 87116; 87147; 87205; 87206; 88112; 88304; 88313; 89050; 93005; 94640; 94760; 94761; 94799; 96365; 96367; 96375; 97162; 97530; 99285; A9270; A9537; C1725; C2615; C9290; J0330; J0456; J0690; J0696; J1170; J1650; J1940; J2060; J2370; J2930; J3010; J7030; J7120; P9016; P9047; Q9967; S0020